=== PATIENT | female | born 1945 | race Caucasian/White ===

== ENCOUNTER 2016-08-11 07:59 | Outpatient (CLI) | payer MEDICARE, BC ==
[~2016-08-11] VITALS: Ht 170.2 cm; Wt 97.3 kg
--- NOTE | ~2016-08-11 | HEMODYNAMI ---
PATIENT:SHANIA VALERIO MEDICAL RECORD: [id number] : 49 LOCATION:D.CAT ADMISSION DATE: 08/11/16 Generatedon:08/11/201611:40 Patient name: SHANIA VALERIO Patient #: [id number] SSN: [id number] : 1945 Date of study: 08/11/2016 Page: Of Hemodynamic Procedure Report Patient Data Patient Demographics Procedure consent was obtained First Name: SHANIA Gender: Female Last Name: TEODORO : 1945 Middle Initial: D Age: 71 year(s) Patient #: [id number] Race: SSN: [id number] Additional ID: [id number] Contact details [address]: [address] [place] [address] State: [place] City: [place] Zip code: [address] Past Medical History Allergies Allergen Reaction Date Comments Reported Other allergy 08/11/2016 Penicillin, amoxicillin, sulfa, codeine, adhesive, augmentin Admission Admission Data Admission Date: 08/11/2016 Admission Time: 7:59 Arrival Date: 08/11/2016 Arrival Time: 10:00 Admit Source: Other Insurance Payor: Medicare Height (in.): 67 BSA: 2.08 (m2) Height (cm.): 170.18 BMI: 33.52 (kg/m2) Weight (lbs.): 214 Weight (kg.): 97.07 Lab Results Lab Result Date: 08/11/2016 Lab Result Time: 0:00 Biochemistry Name Units Result Min Max BUN mg/dl 23 --(----)-* 7 18 Creatinine mg/dl 1.1 --(--*-)-- 0.6 1.3 CBC Name Units Result Min Max Hemoglobin g/dl 11.8 *-(----)-- 13.5 17.5 Procedure Procedure Types Cath Procedure Diagnostic Procedure Cardioversion Procedure Description Procedure Date Procedure Date: 08/11/2016 Procedure Start Time: 11:30 Procedure End Time: 11:31 Procedure Staff Name Function Yves Antonio MD Performing Physician Shruti Lacy RT Scrub Nicole Issa RN Nurse Thu Guardado RT Monitor Indication Angina Procedure Data Cath Procedure Fluoroscopy Diagnostic fluoroscopy Total fluoroscopy Time: 0 time: 0 min min Diagnostic fluoroscopy Total fluoroscopy dose: 0 dose: 0 mGy mGy Contrast Material Contrast Material Type Amount (ml) Isovue 370 0 Estimated blood loss: 0 ml Procedure Complications No complications Procedure Medications Medication Administration Route Dosage Oxygen NC 2 l/min Refer to Anesthesia Notes for Sedation Medications Hemodynamics Rest BSA: 2.08 (m2) HGB: 11.8 (g/dl) O2 Consumption: Estimated: 207.22 (ml/min) O2 Consumption indexed: Estimated:99.63 (ml/min/m) Heart Rate: 89 (bpm) Snapshots Pre Cath Intra NCS Post Cath Vital Signs Time Heart Resp SPO2 NIBP (mmHg) Rhythm Pain Sedation Rate (ipm) (%) Status Level (bpm) 11:24:03 93 15 98 131/86(112) A-Fib 0 (11) 10(A) , No pain 11:28:16 87 15 98 138/79(100) A-Fib 0 (11) 6(A) , No pain 11:32:31 52 16 96 88/45(66) SB 0 (11) 6(A) , No pain 11:36:25 51 15 97 85/44(65) SB 0 (11) 8(A) , No pain Medications Time Medication Route Dose Verified Delivered Reason Notes Effectiven ess by by 11:26:36 Oxygen NC 2 Yves Rivera Per l/min Marisela Issa RN physician 11:26:44 Refer to Yves Marinelli for Anesthesia Marisela Antonio MD sedation Notes for Sedation Medications Procedure Log Time Note 11:00:35 Nicole Issa RN sent for patient. Start room use. 11:16:12 Informed consent obtained and on chart 11:17:12 Admit Source: Other 11::18 Arrival Date: 08/11/2016 10:00:00 AM 11:17:25 Insurance Payor : Medicare 11:19:52 Lab Result : BUN 23 mg/dl 11:19:52 Lab Result : Creatinine 1.1 mg/dl 11:19:52 Lab Result : Hemoglobin 11.8 g/dl 11:19:57 Diagnostic Cath Status : Elective 11:20:18 Indication : Angina 11:20:41 Time tracking: Regular hours 11::13 Plan of Care:Hemodynamics will remain stable., Cardiac rhythm will remain stable., Comfort level will be maintained., Respiratory function will remain adequate., Patient/ family verbilizes understanding of procedure., Procedure tolerated without complication., Recovers from procedure without complications.. 11:21:42 Patient received from Outpatients to CCL 1 Alert and oriented. Tansferred to table in Supine position. 11:21:43 Warm blankets applied, and suzy hugger turned on for patient comfort. 11:21:43 Correct patient and procedure confirmed by team. 11:21:44 ECG and BP/O2 sat monitors applied to patient. 11:23:06 Vital chart was started 11:23:07 Baseline sample Acquired. 11:23:13 Rhythm: atrial fibrillation 11:23:15 Full Disclosure recording started 11:23:42 H&P Date Dictated: 08/05/2016 Within 30 days and on chart., H&P Addendum completed by physician on day of procedure. (MUST COMPLETE FOR ALL OUTPATIENTS). 11:23:47 Pre-procedure instructions explained to patient. 11:23:47 Pre-op teaching completed and patient verbalized understanding. 11:23:49 Family in waiting room. 11:23:50 Patient NPO since Midnight. 11:24:36 Patient allergic to Other allergyPenicillin, amoxicillin, sulfa, codeine, adhesive, augmentin 11:25:17 Is the patient allergic to Iodine/contrast media? No. 11:25:20 Was the patient premedicated? No 11:25:44 Is patient on blood thinner?Yes 11:25:48 ACC The patient was administered the following blood thiners within the last 24 hours: Coumadin 11:25:50 Patient diabetic? No. 11:25:53 Previous problem with sedation/anesthesia? No ? 11:25:55 Snore? No 11:25:56 Sleep apnea? No 11:25:58 Deviated septum? No 11:25:59 Opens mouth fully? Yes 11:26:00 Sticks out tongue? Yes 11:26:02 Airway obstruction? No ? 11:26:07 Dentures? Yes in tight 11:26:10 Pre procedure: right dorsailis pedis pulse 1+ Palpable, but thready & weak; easily obliterated 11::13 Patient pain scale 0/10 ?. 11:26:20 IV patent on arrival in left forearm with 0.9% NaCl at O. :: Lab results completed and on chart. 11:: Mid Chest area was prepped with chlora-prep and draped in sterile fashion 11:: Alarms reviewed by R. N. 11:: Sharps counted by scrub and verified by R.N. 11::36 Oxygen 2 l/min NC was given by Nicole Issa RN; Per physician; 11::42 Hernandez Esquivel present and monitoring patient for TIVA. 11::44 Refer to Anesthesia Notes for Sedation Medications was given by Yves Antonio MD; for sedation; 11::46 Quick combo pads placed on patients chest and back. 11:28:12 Physician arrived 11:: --------ALL STOP TIME OUT------ 11::13 Final Timeout: patient, procedure, and site verified with staff and physician. All members of the team are in agreement. 11::16 Mid Chest site verified by team. 11::21 Physical assessment completed. ASA score P 2 - A patient with mild systemic disease as per Yves Antonio MD. 11::24 Sedation plan: TIVA Propofol 11::30 Procedure started. 11::52 Defib charged to 250 joules 11::02 Quick Combo opened to sterile field. 11:29:45 Shock delivered. 11::53 Patient cardioverted to sinus rhythm . 11::37 Procedure ended.(Physican Out) 11::04 Fluoroscopy time 00.00 minutes. 11::06 Fluoroscopy dose: 0 mGy 11:: Flurop Dose total: 0 11::09 Contrast amount:Isovue 370 0ml. 11:31:10 Sharps counted by scrub and verified by R.N. 11::17 Post procedure rhythm: sinus rhythm ::20 Estimated blood loss: 0 ml :: Post procedure instruction explained to patient.Patient verbalizes understanding. : Patient needs reinforcement of post procedure teaching. : Procedure and supply charges have been captured, reviewed, submitted and are correct. 11:31:30 Procedure Complication : No complications 11:31:33 Vital chart was stopped 11:31:34 See physician's report for complete and final results. 11:31:46 Report given to Post Procedure Room. 11:31:48 Patient transfered to Post Procedure Room with Stretcher. 11:31:49 Procedure ended. 11:31:49 Full Disclosure recording stopped 11:31:53 End room use (Document Last) 11:32:39 Patient Weight : 97.07 kg 11:32:44 Patient Height : 170.18 cm Device Usage Item Manufacture Quantity Catalog Hospital Part Current Minimal Lot# / Name Number Charge Number Stock Stock Renae al# Code Iptivia 1 [id number] Combo Signature Audit [place] Stage Time Signature Unsigned Intra-Procedure 08/11/2016 Thu Guardado 11:40:45 AM RT(R) Signatures Monitor : Thu Guardado RT Signature : Date : Time : [facility] [address] [facility] [place] [address]
[~2016-08-11 07:59] MED LIST: ACETAMINOPHEN500 M1 PO; ASPIRIN 81 MG E81 MG PO; BAYER CHEWABLE81 MG PO; BENADRYL25 MG PO; CARAFATE1 G/10 ML PO; CIPROFLOXACIN750 MG PO; COLACE100 MG PO; COUMADIN2.5 MG PO; COUMADIN4 MG PO; COUMADIN5 MG PO; COZAAR50 MG PO; CRANBERRY475 MG PO; DETROL LA4 MG PO; ELIQUIS2.5 MG PO; FORMULA E400 UNIT PO; FORTAZ IV; GARLIC1 CAP PO; HYDROCHLOROTH12.5 M1 PO; HYZAAR 100-12.51 TAB; HYZAAR 100-12.51 TAB PO; HYZAAR 50-12.51 TAB PO; KLOR-CON 1010 MEQ PO; LEVAQUIN500 MG PO; LOVENOX40 MG/0.4 SC; MEDROL DOSE PACK4 MG PO; METOPROLOL TAR100 M1 PO; MIRALAX17 GM PO; MOTRIN800 MG PO; MULTI-DAY VITAM1 TAB PO; MULTIPLE VITAMI1 TA1 PO; NIASPAN500 MG PO; OXYCONTIN10 MG PO; PERCOCET 10/3251 TA1 PO; PLAVIX75 MG PO; PRAVACHOL20 MG PO; PROTONIX40 MG PO; SALINE FLUSH10 ML IV; SYNTHROID125 MCG PO; SYNTHROID150 MCG PO; TOPROL XL100 MG PO; ULTRAM50 MG PO; UROCIT-K10 MEQ PO; VESICARE5 MG PO; VITAMIN B-1000 MCG/M IM; VITAMIN B-1000 MCG/M SQ; VITAMIN D2000 UNIT PO; VITAMIN E400 UNI2 PO; ZYRTEC10 MG PO; [UNRECOGNIZED DRUG - OTHER] IV
[2016-08-11] MEDS ORDERED: COUMADIN6 MG PO (08:39)
[2016-08-11] MEDS ORDERED: OMEPRAZOLE20 M1 PO (08:47)
[2016-08-11] MEDS ORDERED: DOXYCYCLINE HY100 M2 PO (08:50)
[2016-08-11] MEDS ORDERED: BETAPACE 120 M120 MG PO (08:51)
[2016-08-11] MEDS ORDERED: DETROL2 MG PO (08:51)
[2016-08-11] MEDS ORDERED: PROVENTIL/2.5 MG/3 M INH (08:51)
[2016-08-11] MEDS ORDERED: ZOFRAN4 MG (08:52)
[2016-08-11] MEDS ORDERED: CLARITIN 10 MG10 MG PO (08:52)
[2016-08-11] MEDS ORDERED: MUCINEX600 MG PO (08:53)
[2016-08-11] MEDS ORDERED: BENADRYL25 MG PO (08:53)
[2016-08-11] MEDS ORDERED: MYLANTA II SUSP30 ML PO (08:54)
[2016-08-11] MEDS ORDERED: FLORANEX / LACT1 TAB PO (08:54)
[2016-08-11 08:58] VITALS: BP 148/74; Ht 170.2 cm; Wt 97.3 kg
[2016-08-11 09:08] LABS: BASOPHILS 0 % (0.0-2.0); EOSINOPHILS 0 % (0-7); HEMATOCRIT 38.5 % (36.0-48.0); HEMOGLOBIN 11.8 g/dL (12-16); IMMATURE GRANULOCYTES 0.2 % (0-5); LYMPHOCYTES 17.9 % (15-50); MCH 26.5 pg (26.0-34.0); MCHC 30.6 g/dL (31.0-37.0); MCV 86.5 fL (80.0-100.0); MEAN PLATELET VOLUME 10.1 fL (7.4-10.4); MONOCYTES 8.1 % (2-11); NEUTROPHILS 73.8 % (40-80); RBC 4.45 10x6/uL (4.00-5.40); RDW 15.9 % (11.5-14.5); WBC 5.8 10x3/uL (4.8-10.8)
[2016-08-11 09:11] LABS: PLATELET COUNT 115 10x3/uL (130-400)
[2016-08-11 09:20] LABS: ANION GAP 10.4 mmol/L (8-16); CALCIUM 9.3 mg/dL (8.5-10.1); CARBON DIOXIDE 30.9 mmol/L (21.0-32.0); CREATININE - SERUM 1.1 mg/dL (0.6-1.3); POTASSIUM - SERUM 4.3 mmol/L (3.5-5.1)
[2016-08-11 09:28] LABS: INR 3.16 (0.85-1.17); PROTIME 32.7 SECONDS (11.6-15.0)
--- NOTE | 2016-08-11 11:57 | NUR ---
CHEST PAIN DENIED WITH HR SB 51. BP 90/53 SITTING WITH HOB UP 30 DEGREES TALKING TO FAMILY WILL SIN
--- NOTE | 2016-08-11 12:37 | NUR ---
REPOSITIONED TO SITTING WITH HOB UP 45 DEGREES FOR DISCHARGE FAMILY AT SIDE
--- NOTE | 2016-08-11 12:45 | NUR ---
PICC LINE FLUSHED WITH 10 CC NS AND CAP APPLIED. DISCHARGE INSTRUCTIONS GONE OVER WITH PATIENT AND SPOUSE. LEFT VIA WC TO [facility] EM[facility]GENC[facility]PARTMENT FOR [facility] TRANSPORT BUS
--- NOTE | 2016-08-13 16:40 | OP ---
PATIENT NAME: SHANIA VALERIO MEDICAL RECORD: [id number] :49 LOCATION:D.ZANE ADMISSION DATE: SURGEON: ESTIVEN MCKENZIE MD DATE OF OPERATION: 08/11/2016 PROCEDURE: DC cardioversion. INDICATION: Atrial fibrillation. PROCEDURE IN DETAIL: IV conscious sedation was performed per anesthesia. Continuous O2 saturation, heart rate, blood pressure monitoring all undertaken, all of which remains stable. She received 1 shock at 250 joules restoring sinus rhythm. OVERALL IMPRESSION: Successful DC cardioversion from atrial fibrillation to sinus rhythm. TRANSINT:[id number] Voice Confirmation ID: [id number] DOCUMENT ID: [id number] ESTIVEN MCKENZIE MD at 1640 CC: [id number] DICTATION DATE: 08/11/16 1131 [facility] SLAKER: 08/11/16 1144 [facility] CLI 08/11/[address] [address]
== END 2016-08-11 12:52 | disposition home or self-care (01) ==
LOC: D.CATH 07:59
PROVIDERS: Internal Medicine Interventional Cardiology
DX: I48.91 Unspecified atrial fibrillation (principal)

== ENCOUNTER 2018-12-26 12:54 | Inpatient (IN) | payer MEDICARE, BC ==
[~2018-12-26] VITALS: Ht 167.6 cm; Wt 90.9 kg
[~2018-12-26 12:54] MED LIST changes: +BETAPACE 120 M120 MG PO; +BETAPACE 80 MG80 MG PO; +CLARITIN 10 MG10 MG PO; +COUMADIN6 MG PO; +DETROL2 MG PO; +DOXYCYCLINE HY100 M2 PO; +FLORANEX / LACT1 TAB PO; +FUROSEMIDE20 MG PO; +K-TAB10 MEQ PO; +LEVOTHYROXINE125 MCG PO; +MUCINEX600 MG PO; +MYLANTA II SUSP30 ML PO; +OMEPRAZOLE20 M1 PO; +PRAVASTATIN SOD10 MG PO; +PROVENTIL/2.5 MG/3 M INH; +ZOFRAN4 MG
[2018-12-26] MEDS ORDERED: MACRODANTIN100 MG PO (13:40)
[2018-12-26] MEDS ORDERED: FUROSEMIDE20 MG PO (13:41)
[2018-12-26] MEDS ORDERED: BAYER CHEWABLE81 MG PO (13:43)
[2018-12-26] MEDS ORDERED: SORINE80 MG PO (13:43)
[2018-12-26] MEDS ORDERED: COZAAR50 MG PO (13:47)
[2018-12-26] MEDS ORDERED: MERIBIN5 MG PO (13:48)
[2018-12-26] MEDS ORDERED: EDECRIN25 MG PO (13:49)
[2018-12-26 15:27] LABS: APPEARANCE CLEAR (CLEAR); BILIRUBIN NEGATIVE (NEGATIVE); COLOR YELLOW (YELLOW); EPITHELIAL CELLS OCC /hpf (0-5); GLUCOSE NEGATIVE (NEGATIVE); KETONE NEGATIVE (NEGATIVE); NITRITE NEGATIVE (NEGATIVE); PROTEIN NEGATIVE (NEGATIVE); RED CELLS - URINE OCC /hpf (0-5); UROBILINOGEN NORMAL (NORMAL); WHITE CELLS - URINE OCC /hpf (0-5)
[2018-12-26 15:28] LABS: BACTERIA FEW /hpf (NONE SEEN)
[2018-12-26 16:14] LABS: BASOPHILS 0 % (0-2); EOSINOPHILS 0.2 % (0-7); HEMATOCRIT 39.5 % (36.0-48.0); HEMOGLOBIN 12.7 g/dL (12-16); IMMATURE GRANULOCYTES 0.2 % (0-5); LYMPHOCYTES 30.8 % (15-50); MCH 27.7 pg (26.0-34.0); MCHC 32.2 g/dL (31.0-37.0); MCV 86.1 fL (80.0-100.0); MEAN PLATELET VOLUME 9.7 fL (7.4-10.4); MONOCYTES 11.4 % (2-11); NEUTROPHILS 57.4 % (40-80); RBC 4.59 10x6/uL (4.00-5.40); RDW 14.8 % (11.5-14.5); WBC 4.9 10x3/uL (4.8-10.8)
[2018-12-26 16:18] LABS: APTT 28.5 SECONDS (22.8-39.4); INR 1.05 (0.85-1.17); PROTIME 13.2 SECONDS (11.6-15.0)
[2018-12-26 16:23] LABS: PLATELET COUNT 143 10x3/uL (130-400)
[2018-12-26 16:33] LABS: ALBUMIN 3.6 g/dL (3.4-5.0); ANION GAP 13.6 mmol/L (8-16); BILIRUBIN - TOTAL 0.55 mg/dL (0.2-1.3); CALCIUM 9.3 mg/dL (8.5-10.1); CARBON DIOXIDE 28.8 mmol/L (21.0-32.0); PHOSPHOROUS 4.2 mg/dL (2.5-4.9); POTASSIUM - SERUM 4.4 mmol/L (3.5-5.1); PROTEIN - SERUM 7.1 g/dL (6.4-8.2); T4 THYROXIN - FREE 1.49 ng/dL (0.76-1.46); THYROID STIMULATING HORMONE 1.03 uIU/mL (0.36-3.74); URIC ACID 7.5 mg/dL (2.6-7.2)
[2018-12-29] VITALS (43 sets, daily range): BP systolic 99–188; BP diastolic 42–667; BMI 29.7; BMI 30.7
[2018-12-29] MEDS ORDERED: PREVACID15 MG PO (06:06)
[2018-12-29 16:52] LABS: BASOPHILS 0 % (0-2); EOSINOPHILS 0.3 % (0-7); HEMATOCRIT 29.3 % (36.0-48.0); HEMOGLOBIN 9.3 g/dL (12-16); IMMATURE GRANULOCYTES 0.4 % (0-5); LYMPHOCYTES 3.8 % (15-50); MCH 27.3 pg (26.0-34.0); MCHC 31.7 g/dL (31.0-37.0); MCV 85.9 fL (80.0-100.0); MEAN PLATELET VOLUME 9.9 fL (7.4-10.4); MONOCYTES 6.7 % (2-11); NEUTROPHILS 88.8 % (40-80); RBC 3.41 10x6/uL (4.00-5.40); RDW 14.8 % (11.5-14.5); WBC 7.5 10x3/uL (4.8-10.8)
[2018-12-29 16:59] LABS: INR 1.34 (0.85-1.17)
[2018-12-29 17:04] LABS: PLATELET COUNT 86 10x3/uL (130-400)
[2018-12-29 17:28] LABS: PLATELET ESTIMATE DECREASED
--- NOTE | 2018-12-29 18:24 | NUR ---
1500-RECIEVED VIA BED OR TEAM-PLACED TO MONITORS AND VENT-SEE RT RECORDFOR VENT SETTINGS AND CHANGES-NOTED PACED 100%-80/10/20-DDD GIL 1 MEDIASTINAL CHEST AND R CHEST TUBE PLACED TO 20CM-NO OGT TUBE-DR BELLO AT BEDSIDE AND MONITORING ABP WITH TITRATION -R IJ IN [id number]-FWMPEXZH-RLET PA WAVEFORM-GROCERY STORE ASSOCIATE AND SVO2 PLACED TO MONITOR-FSBS DONE ON ARRIVAL-WITHIN PARAMETER-NO INSULIN GTT INITIATED-R RADIAL KIRSTEN TO MONITOR 1515-DR PERES BROUGHT TO BEDSIDE FOR LABILE ABP-FOLLOWING CHANGES MADE BY SAME -NTG GTT MAX 10ML/H-CLEVIPREX TO TITRATE OFF WITH VERBAL PARAMETER OF 110-140 SYS-STRICT TO REMAIN WITHIN PARAMETER-OFF EPINEPHRINE GTT-PACER CHANGED TO AAI 80//0-NOTED [facility] PACED 100% 1520-PORT CHEST XRAY COMPLETED 1530-DR PERES RETURNED TO RM AND ADJUSTED SG WITH GOOD PA WAVEFORM-AND LOCKED 1600-PACER CHANGE TO STANDBY BY DR PERES-NOTED SR 79 ON MONITOR -CLEVIPREX OFF 1618-FAMILY AT BEDSIDE-STATUS REPORT GIVEN-QUESTIONS ADDRESSED 1700-LAB DRAWN ORDERED BY DR PERES 1730-DR PERES AT [facility] -VENT CHANGES CONTINUED 1745-PT OPENED EYES TO NAME AND GRIPPED THAIS HANDS -R WEAK-KIRSTEN IN PLACE
--- NOTE | 2018-12-29 19:20 | NUR ---
REPORT REC'D AND CARE ASSUMED, REC'D PT ON VENT VIA 8.0 ETT TAPED SECURELY AT 22CM LIPLINE SEE FLOWSHEET FOR VENT SETTINGS, PT AWAKENS TO VERBAL STIMULI, FOLLOWING COMMANDS, BILAT INDUSTRIAL ENGINEERING EQUAL AND STRONG, PT NODDING IN UNDERSTANDING, CM-SR @ 80, MIDSTERNAL DRSG CDI, SUBSTERNAL DRSG WITH EXTERNAL P/M WIRES SECURED, RIJ SWAN SLAVA TRANSDUCED TO VIGILANCE MONITOR, MANNIFOLD TO PROXIMAL INFUSION WITH PLASMALYTE @ 100CC/HR, DOBUTAMINE @ 5MCG/KG/MIN OR 12.5CC/HR, AND ZINACEF @ 11.4CC/HR, RIGHT RADIAL KIRSTEN WITH FLEXION BOARD IN USE, ABD SOFT BS ABSENT, MEDIASTINAL CT WITH Y CONNECTOR SANGUINOUS DRAINAGE NOTED, RIGHT CT NOTED, BOTH CT'S TO 20 CM H20 SUCTION, NO AIR LEAK, CRITICORE ALEX PATENT DRAINING CLEAR YELLOW URINE, LEFT LEG WITH COBAN DRSG CDI, SCD AND CARRIE TO RIGHT LEG, PPP, BILAT SOFT WRIST RESTRAINTS INTACT, 1:1 NURSING IN USE. ,
--- NOTE | 2018-12-29 20:15 | NUR ---
PT PLACED ON CPAP AT THIS TIME, PT RESTING EYES CLOSED, RESP 21, BP STABLE, WILL MONITOR CLOSELY FOR CHANGES.
--- NOTE | 2018-12-29 21:36 | NUR ---
PT EXTUBATED TO 5L NC, BILAT SOFT WRIST RESTRAINTS REMOVED AFTER PT BEING INSTRUCTED NOT TO PULL AT LINES OR TUBES, PT NODS HEAD IN AGREEMENT, REPOSITIONED UP IN BED FOR COMFORT, PT COMPLAINS OF DIFFICULTY SEEING, WASHED FACE AND EYES LACRILUBE NOTED TO EYES.
--- NOTE | 2018-12-29 22:15 | NUR ---
PT COMPLAINS OF MOUTH BEING DRY, ICE CHIPS STARTED, PT DENIES NAUSEA, BP STABLE.
--- NOTE | 2018-12-29 23:16 | NUR ---
REASSESSMENT COMPLETED, PT TOLERATING ICE CHIPS WELL, INCREASED TO SIPS OF WATER, PT CONTINUES TO DENY NAUSEA, DENIES NEED FOR PAIN PILL, RATING PAIN "3" ON 0-10 PAIN SCALE, WILL CONTINUE TO MONITOR FOR CHANGES.
--- NOTE | 2018-12-29 23:30 | NUR ---
RT AT BS FOR BREATHING TX
[2018-12-30] VITALS (78 sets, daily range): BP systolic 78–139; BP diastolic 31–71; BMI 32.3
--- NOTE | 2018-12-30 | NUR ---
SPLINTING TECHNIQUES DEMONSTRATED FOR PT WITH HEART PILLOW, PT REQUESTING "MORE ICE WATER", CONINTUES TO DENY NEEDS.
--- NOTE | 2018-12-30 01:05 | NUR ---
PT COMPLAINS OF INCISIONAL DISCOMFORT, SBP TRENDING UP, 1 PERCOCET GIVEN PO FOR PAIN, PT RATING PAIN "5" O-10 PAIN SCALE, WILL MONITOR CLOSELY FOR CHANGES.
--- NOTE | 2018-12-30 02:40 | NUR ---
PT RESTING EYES CLOSED RESP EVEN AND UNLABORED, VSS, WILL MONITOR CLOSELY ROR CHANGES
--- NOTE | 2018-12-30 03:15 | NUR ---
RT AT BS FOR BREATHING TX, PT PULLING 500 ON IS, PRODUCTIVE COUGH NOTED WITH WHITE SPUTUM CLEARED VIA YANKEUR, PT REPOSITIONED UP IN BED AND ONTO LEFT SIDE SUPPORTED WITH PILLOWS, VSS, SR UP X 2, VISIBLE TO NURSES STATION.
--- NOTE | 2018-12-30 04:00 | NUR ---
COMPLETE HIBICLENS BATH AND LINEN CHANGE PROVODED, PT REPOSITIONED UP IN BED FOR COMFORT, ICE WATER PROVIDED ON REQUEST, PT DENIES FURTHER NEEDS.
--- NOTE | 2018-12-30 04:15 | NUR ---
AT BS, UPDATE GIVEN AND QUESTIONS ANSWERED.
--- NOTE | 2018-12-30 04:25 | NUR ---
PT COMPLAINS OF INCISIONAL DISCOMFORT, 1 PERCOCET GIVEN WITH SIPS OF [place] LAY [place]A, REMAINS AT BS
--- NOTE | 2018-12-30 06:00 | NUR ---
AM LAB DRAWN FROM CVL AND SENT TO LAB
--- NOTE | 2018-12-30 06:10 | NUR ---
CM-HR DECREASED TO 65 APPEARS JUNCTIONAL BP 100/40, PT RESTING EYES CLOSED, EASILY AWAKENS, DENIES NEEDS.
[2018-12-30 06:14] LABS: HEMATOCRIT 25.2 % (36.0-48.0); MCH 27.1 pg (26.0-34.0); MCHC 31.7 g/dL (31.0-37.0); MCV 85.4 fL (80.0-100.0); MEAN PLATELET VOLUME 9.8 fL (7.4-10.4); RBC 2.95 10x6/uL (4.00-5.40); RDW 15.3 % (11.5-14.5); WBC 8.7 10x3/uL (4.8-10.8)
[2018-12-30 06:35] LABS: ALBUMIN 2.8 g/dL (3.4-5.0); ANION GAP 13.5 mmol/L (8-16); BILIRUBIN - TOTAL 0.53 mg/dL (0.2-1.3); CALCIUM 8.1 mg/dL (8.5-10.1); CARBON DIOXIDE 26.5 mmol/L (21.0-32.0); CREATININE - SERUM 1.1 mg/dL (0.6-1.3); PROTEIN - SERUM 5.2 g/dL (6.4-8.2)
--- NOTE | 2018-12-30 06:45 | NUR ---
RT NOTIFIED OF NEED FOR ABG, CM-JUNCTIONAL RHYTHM 59-62, SBP 80'S
--- NOTE | 2018-12-30 06:55 | NUR ---
CARE PLAN REVIEWED -ADJUSTED
--- NOTE | 2018-12-30 07:10 | NUR ---
DR. HALEY NOTIFIED OF RHYTHM CHANGE AND PLACING PACEMAKER AT DDD [address] PERES YESTERDAY, RATE INCREASED TO 90 , P/M CAPTURING BP INCREASED TO HIGH 90'S , NO FURTHER ORDERS AT THIS TIME.
--- NOTE | 2018-12-30 07:30 | NUR ---
RT NOTIFIED OF NEED FOR GAS, CM-JUNCTIONAL RHYTHM @ 59-62, SBP 80'S
--- NOTE | 2018-12-30 10:00 | NUR ---
0715-RECIEVED PER FLOW SHEET-DR HALEY BEING NOTIFIED OF CURRENT STATUS BY Sergio BARR RN-PACEMAKER ADJUSTED TO 90 05/08-DDD WITH 100% A/V CAPTURE-RESP RX IN PROGRESS-POST PRODUCTIVE COUGH BY PT-MARKED PALLOR NOTED--PP BOUNDING 0830- ADJUSTED HOB TO INCREASED ANGLE-45 DEGREES-NOTED CONCURRENT DECREASE IN NIBP AND ABP-79/44(53)/88/41(51)-RETURNED HOB TO 30DEGREES-PT COMPLAINT OF NOT BEING ABLE TO EAT THIS WAY-AND COMPLAINT OF ARM RESTRICTION WITH "ALL THIS STUFF"-EXPLAINED BP DROP WITH SITTING UP AND HURT STILL "SHOCKY" PHASE REMINDED 18H ONLY POST COMPLETION OF SURGERY AND IN RECOVERY PHASE AT THIS TIME-FAMILY MEMBER NODDED IN AGREEMENT-PT CONCEDED-FAMILY MEMBER ASSISTED WITH CLEAR LIQUID DIET 0830-UPDATED DR HALEY WITH CURRENT STATUS AND ABP SLOWLY TRENDING TO UPPER 90 SYSTOLIC-HOURL OUT PUT WELL-NO FURTHER ORDERS AT THIS TIME
--- NOTE | 2018-12-30 10:21 | NUR ---
LEFT ROOM PT APPEARS TO BE ASLEEP 1030-AWAKE ALERT-DENIES ANY PAIN AT THIS TIME
[2018-12-30 12:11] LABS: HEMATOCRIT 24.3 % (36.0-48.0); HEMOGLOBIN 7.7 g/dL (12-16); MCHC 31.7 g/dL (31.0-37.0); MCV 85.3 fL (80.0-100.0); MEAN PLATELET VOLUME 10.2 fL (7.4-10.4); RBC 2.85 10x6/uL (4.00-5.40); RDW 15.3 % (11.5-14.5); WBC 9.9 10x3/uL (4.8-10.8)
--- NOTE | 2018-12-30 12:49 | NUR ---
1130-DR HALEY AT BEDSIDE-STATUS REPORT AND ORDERS RECIEVED 1200-HEMOGRAM DRAWN ORDERED 1255-HCT 24.6-PRBC UNIT [id number] VIA R IJ
--- NOTE | 2018-12-30 13:42 | NUR ---
FAMILY AT BEDSDIE -HELPING PT POSITION SELF
--- NOTE | 2018-12-30 13:54 | NUR ---
PLACED PT AT REQUEST 30 DEGREES-ABP 115/53
--- NOTE | 2018-12-30 15:17 | NUR ---
1448-update called to dr watkins-pa and cvp pressure-order recieved and noted 1515-[facility] [id number]
--- NOTE | 2018-12-30 16:30 | NUR ---
dr watkins notified of rhythm change and pacer sensing vent-pacer change to 80/10/15-noted 100% av paced with no further sensing ventricular simultaneously with pacing ventricle-prbc infusing-pa
--- NOTE | 2018-12-30 18:38 | NUR ---
1809-PRBC COMPLETED-DR HALEY NOTIFIED OF CURRENT HEMODYNAMICS-U/O -ORDER RECIEVED--PLASMALYTE DECREASED TO 50ML/H-LASIX 40MG IV GIVEN
--- NOTE | 2018-12-30 19:20 | NUR ---
REPORT REC'D AND CARE ASSUMED, PT ASSISTED WITH DAYSHIFT TO DANGLE AT BS FOR APPROXIMATELY 10MINUTES, PARTIAL HIBICLENS BATH GIVEN AND LINES STRAIGHTENED, PT REQUESTING PAIN PILL, RATING PAIN "6" ON 0-10 PAIN SCALE, PERCOCET PROVIDED, MIDSTERNAL DRSG CDI, RIJ JUHI PEDERSEN DRSG CDI WITH MANNIFOLD TO PROXIMAL INFUSION WITH PLASMALYTE @ 50CC/HR AND DOBUTAMINE @ 5MCG/KG/MIN OR 12.5CC/HR, RIGHT RADIAL KIRSTEN WITH FLEXION BOARD IN USE, SUBSTERNAL DRSG CDI WITH EXTERNAL P/M WIRES TAPED SECURELY UNDER DRSG, EXTERNAL P/M DDD RATE 80 AMA 10 VMA 20, CM-AV PACED @ 80, MEDIASTINAL CT WITH Y AND RIGHT CT BOTH TO 20CM H2O SUCTION, NO AIR LEAK NOTED, LEFT A/C PIV WITH ZINACEF INFUSING @ 11.4CC/HR, ABD ROUND AND SOFT BS X 4 NOTED, CRITICORE ALEX PATENT DRAINAING CLEAR YELLOW URINE, LEFT LEG COBAN REMOVED, INCISIONS X 2 ON UPPER THIGH, OPEN TO AIR, PT REPOSITIONED UP IN BED FOR COMFORT, BILAT SCDS AND TEDS PPP, SR UP X 2, VISIBLE TO NURSES STATION. YELLOW,
--- NOTE | 2018-12-30 20:30 | NUR ---
FSBS 116, RT AT BS GIVING BREATHING TX, PT PULLING 500 ON IS , PRODUCTIVE COUGH NOTED AND PT CLEARING SECRETIONS WITH YANKEUR, PT DENIES NEEDS.
--- NOTE | 2018-12-30 21:00 | NUR ---
EVENING MEDS GIVEN ORDERED, PT ASSISTED TO REPOSITION FOR COMFORT, PT DENIES NEEDS, RATING PAIN "O" AFTER PAIN PILL, WILL MONITOR CLOSELY FOR CHANGES.
--- NOTE | 2018-12-30 23:00 | NUR ---
REASSESSMENT COMPLETED, PT REPOSITIONED FOR COMFORT, PT PULLING 500 ON IS WITH ENCOURAGEMENT,PT USING HEART PILLOW TO SPLINT INCISION, PT REFUSED A PAIN PILL AT THIS TIME, VSS, WILL CONT TO MONITOR FOR CHANGES.
[2018-12-31] VITALS (43 sets, daily range): BP systolic 82–139; BP diastolic 45–88; Ht 167.6 cm; Wt 90.9 kg
--- NOTE | 2018-12-31 01:10 | NUR ---
PT AWAKE, COMPLAINS OF RIGHT SHOULDER PAIN, RATING PAIN "4" ON 0-10 PAIN SCALE, PT ASSISTED TO REPOSITION FOR COMFORT, PERCOCET 5/325 GIVEN FOR PAIN, PT DENIES FURTHER NEEDS.
--- NOTE | 2018-12-31 03:15 | NUR ---
REASSESSMENT COMPLETED, NO CHANGES FROM PREVIOUS ASSESSMENT, PT RESTING IN BED EYES CLOSED, RESP EVEN AND UNLABORED, BP STABLE, CM - AV PACED @ 80, WILL CONT TO MONITOR CLOSELY FOR CHANGES.
--- NOTE | 2018-12-31 04:00 | NUR ---
PT ASSISTED TO SIT ON SIDE OF BED AND DANGLE, SANGUINOUS DRAINAGE NOTED FROM RIGHT CT, COMPLETE HIBICLENS BATH AND LINEN CHANGE PROVIDED, PT BACK TO BED AFTER 15MINUTES ON SIDE OF BED, PT REPOSITIONED UP IN BED FOR COMFORT, SR UP X 2, CALL LIGHT IN REACH.
--- NOTE | 2018-12-31 04:15 | NUR ---
TO BS, UPDATE GIVEN AND QUESTIONS ANSWERED, PT DENIES NEEDS.
--- NOTE | 2018-12-31 04:50 | NUR ---
RADIOLOGY AT FOR AM CXR, PT REPOSITIONED FOR COMFORT, LEGS ELEVATED ON PILLOWS PER REQUEST, TEDS AND SCDS REAPPLIED AFTER BATH AND BREAK.
--- NOTE | 2018-12-31 06:10 | NUR ---
AM LAB DRAWN FROM KIRSTEN AND SENT TO LAB, PT REQUESTING SOMETHING TO DRINK, CRANBERRY JUICE PROVIDED, LIGHTS TURNED DOWN PER PT REQUEST, PT DENIES FURTHER NEEDS, SR UP X 2, YANMIGDALIA AND CALL LIGHT WITHIN REACH.
[2018-12-31 06:50] LABS: MCH 27.3 pg (26.0-34.0); MCHC 32.7 g/dL (31.0-37.0); MCV 83.5 fL (80.0-100.0); MEAN PLATELET VOLUME 11.3 fL (7.4-10.4)
[2018-12-31 06:58] LABS: HEMATOCRIT 29.4 % (36.0-48.0); HEMOGLOBIN 9.6 g/dL (12-16); RBC 3.52 10x6/uL (4.00-5.40)
--- NOTE | 2018-12-31 07:18 | NUR ---
CAREPLAN UPDATED WITH INCREASED FOCUS FOR PHYSICAL THERAPY
[2018-12-31 08:05] LABS: ALBUMIN 2.6 g/dL (3.4-5.0); ANION GAP 13.1 mmol/L (8-16); BILIRUBIN - TOTAL 0.76 mg/dL (0.2-1.3); CALCIUM 8.4 mg/dL (8.5-10.1); CREATININE - SERUM 0.9 mg/dL (0.6-1.3); POTASSIUM - SERUM 4.1 mmol/L (3.5-5.1); PROTEIN - SERUM 5.4 g/dL (6.4-8.2)
--- NOTE | 2018-12-31 09:55 | NUR ---
0715-RECIEVED AWAKE AND ALERT-HOB UP 45 DEGREES-JUHI PEDERSEN RELEVELED AND ZEROED-NOTED PA PRESSURE -DR HALEY NOTIFIED OF CURRENT STATUS AND HEMODYNAMICS 0740-ORDERED RECIEVED AND NOTED -BUMEX 2MG IVP- 829-REVIEWED ORAL FLUID RESTRICTION WITH PT -PROVIDED STYROFOAM CUP WITH ICE AND ENCOURAGED TO SIP ICE MELTED AND CUP WILL BE REPLACED WITH testhubC TRAY FOR NEW ONE-PT AGREEABLE AND ASKED IF IT WILL HELP WITH NOT BEING ABLE TO GET A GOOD BREATH-INFORMED SAME MOST LIKELY
--- NOTE | 2018-12-31 11:58 | NUR ---
REPOSITIONED IN BED-REQUESTING PAIN MEDICINE AT THIS TIME-OFFERED STRONGER DOSE-STATED DID NOT WANT THAT-STATED FROM MOVEMENT-ENCOURAGED TO CALL IF PAIN NOT DECREASED
--- NOTE | 2018-12-31 15:51 | NUR ---
1315-DR HALEY AT [facility]-CHEST TUBES X3 REMOVED BY SAME-TOLERATED WELL BY PT-R SWANGANZ REMOVED BY DR HALEY-CORDIS REMAINS IN PLACE-PACER WIRES REMAIN SECURED AND IN PLACE-PACED 100% 80//15-DDD 1400-PT ASSISTED TO CHAIR BY PHYSICAL THERAPY-NIBP 98/52 1430-NIBP 77/48-RETUNED TO BED WITH ASSIST OF 3 STAFF-TOLERATED WELL 1515-NIBP 102/50-NO CHANGES IN LOC
--- NOTE | 2018-12-31 18:18 | NUR ---
PT RESTING QUIETLY
--- NOTE | 2018-12-31 19:01 | NUR ---
REPORT RECEIVED, SHIFT ASSESSMENT COMPLETED PER FLOW SHEET. AAOX4. PPP. MIDSTERNAL DRESSING C/D/I. SUBSTERNAL DRESSING C/D/I, TPM WIRES CONNECTED TO PACEMAKER. PACEMAKER SETTING DDD RATE 80, AMA 10, VMA 20. PATIENT AV PACED AT 80, NOTIFIED BY DAY SHIFT RN THAT PHYSICIAN IS AWARE. RT IJ CVL PATENT, INFUSING PLASMALYTE AT 30 ML/HR AND DOBUTAMINE AT 5 MCG/KG/MIN OR 12.5 ML/HR. ALEX CATHETER TO GRAVITY SECURED, DRAINING CLEAR YELLOW UOP. COUGH/DEEP BREATHING AND USE OF IS ENCOURAGED, COUGH PRODUCTIVE, PULLING 500 X10 ON IS. SEE FLOW SHEET FOR COMPLETE ASSESSMENT. WILL CONTINUE TO MONITOR. CALL LIGHT WITHIN REACH.
--- NOTE | 2018-12-31 19:36 | NUR ---
CALL LIGHT ANSWERED, PATIENT C/O PAIN, PRN PERCOCET GIVEN, SEE EMAR FOR DETAILS. REPOSITIONED IN BED FOR COMFORT. DENIES OTHER NEEDS. CALL LIGHT WITHIN REACH. WILL CONTINUE TO MONITOR.
--- NOTE | 2018-12-31 19:55 | NUR ---
ORAL CARE PROVIDED WITH PERIDEX
--- NOTE | 2018-12-31 19:57 | NUR ---
SPOKE WITH DR. HALEY, EKG RHYTHM, VS, AND PACEMAKER SETTING REVIEWED. NO NEW ORDERS RECEIVED.
--- NOTE | 2018-12-31 20:56 | NUR ---
SCHEDULED MEDS GIVEN, TOLERATED WELL, NO DIFFICULTY SWALLOWING. DENIES NEEDS. CALL LIGHT WITHIN REACH.
--- NOTE | 2018-12-31 22:00 | NUR ---
RESTING, NO ACUTE DISTRESS NOTED. WILL CONTINUE TO MONITOR.
--- NOTE | 2018-12-31 23:01 | NUR ---
REASSESSMENT COMPLETED PER FLOW SHEET, SEE FOR DETAILS. NO ACUTE DISTRESS NOTED. DENIES PAIN. PPP. PULLING 500 X10 ON IS, COUGH PRODUCTIVE. DENIES NEEDS. CALL LIGHT WITHIN REACH. WILL CONTINUE TO MONITOR.
[2019-01-01] VITALS (25 sets, daily range): BP systolic 101–137; BP diastolic 40–83
--- NOTE | 2019-01-01 00:43 | NUR ---
CALL LIGHT ANSWERED, ASSISSTED PATIENT TO BEDPAN PER HER REQUEST. NO BM. ASSISSTED PATIENT OFF OF BEDPAN. REPOSITIONED IN BED. DENIES OTHER NEEDS. CALL LIGHT WITHIN REACH.
--- NOTE | 2019-01-01 01:11 | NUR ---
CALL LIGHT ANSWERED, C/O SHOULDER PAIN, REQUESTING SOMETHING FOR PAIN, PRN PERCOCET GIVEN. DENIES OTHER NEEDS. CALL LIGHT WITHIN REACH. WILL CONTINUE TO MONITOR.
--- NOTE | 2019-01-01 03:00 | NUR ---
REASSESSMENT COMPLETED PER FLOW SHEET, SEE FOR DETAILS. NO ACUTE CHANGES NOTED. DENIES NEEDS. PPP. CALL LIGHT WITHIN REACH. WILL CONTINUE TO MONITOR.
--- NOTE | 2019-01-01 04:00 | NUR ---
OCCASSIONAL PVC'S/PAC'S NOTED ON MONITOR. STAT POTASSIUM SENT TO LAB.
--- NOTE | 2019-01-01 04:18 | NUR ---
POTASSIUM LEVEL NOW AVAILABLE AND REVIEWED, K+ IS 3.5, TREATED PER PROTOCOL. WILL CONTINUE TO MONITOR. AT BEDSIDE FOR VISITING HOUR, UPDATE GIVEN, QUESTIONS ANSWERED.
--- NOTE | 2019-01-01 04:58 | NUR ---
CALL LIGHT ANSWERED, PATIENT C/O OF NAUSEA, PRN ZOFRAN GIVEN. EMESIS BAG PROVIDED, NO VOMITING AT THIS TIME. CALL LIGHT WITHIN REACH. AT BEDSIDE. WILL CONTINUE TO MONITOR.
--- NOTE | 2019-01-01 05:00 | NUR ---
COMPLETE BED BATH GIVEN, COMPLETE BED LINEN CHANGE PROVIDED. REPOSITIONED IN BED. CALL LIGHT WITHIN REACH. WILL CONTINUE TO MONITOR.
--- NOTE | 2019-01-01 06:00 | NUR ---
SUBSTERNAL DRESSING CHANGED PER DOCTOR'S ORDERS. TPM WIRES INTACT.
[2019-01-01 06:22] LABS: HEMATOCRIT 29.7 % (36.0-48.0); HEMOGLOBIN 9.6 g/dL (12-16); MCH 27.2 pg (26.0-34.0); MCHC 32.3 g/dL (31.0-37.0); MCV 84.1 fL (80.0-100.0); MEAN PLATELET VOLUME 10.3 fL (7.4-10.4); RBC 3.53 10x6/uL (4.00-5.40); RDW 15.6 % (11.5-14.5); WBC 10.1 10x3/uL (4.8-10.8)
--- NOTE | 2019-01-01 06:29 | NUR ---
ORAL CARE DONE WITH PERIDEX
[2019-01-01 06:41] LABS: ALBUMIN 2.4 g/dL (3.4-5.0); BILIRUBIN - TOTAL 0.58 mg/dL (0.2-1.3); CALCIUM 8.2 mg/dL (8.5-10.1); CARBON DIOXIDE 27.2 mmol/L (21.0-32.0); PROTEIN - SERUM 5.4 g/dL (6.4-8.2)
[2019-01-01 06:43] LABS: ANION GAP 10.1 mmol/L (8-16); POTASSIUM - SERUM 4.3 mmol/L (3.5-5.1)
[2019-01-01 06:58] LABS: PLATELET COUNT 75 10x3/uL (130-400)
--- NOTE | 2019-01-01 07:00 | NUR ---
REPORT RECEVIED FROM THE OFF GOING RN. SEE ASSESSMENT IN THE PTS FLOWS SHEET. PT SITTING IN BED. I WAS INFORMED THAT THE MD'S WANT PHYSCIAL THEARPY TO ASSIST WITH GETTING THE PT OOB. ATRAIL AND VETRICULARRLY PACED ON THE MONITORS. TPM SETTINGS: DDD, RATE 80, AMA 10, VMA 20, A SENT 0.5, V SENT 2.0 AV INTERVAL 170. OFF GOING RN CONTACTING DR HALEY/DR PERES ABOUT HOLDING THE LASIX DUE TO BP BEING LOW. WILL HOLD LASIX UNTILL DR PERES SEES THE PT PER DR PERES. PT ON 2L VIA NC. RIGHT IJ CVL NOTED. DRESSING C/D/I. PATENT. SEE IV FLUIDS IN THE PTS FLOW SHEET. SUBSTERNAL DRESSING C/D/I. TPM WIRES NOTED UNDER THE DERSSING. RLE HARVEST SITES ENERGY PROJECT MANAGER AND WELL APPROXIMATED. FC NOTED WITH CLEAR, YELLOW URINE. PT DENIES NEEDS/PAIN AT THIS TIME. INSTRUCTED THE PT TO TCDB QH AND TO USE HER IS 10X'S/H. PT ONLY ABLE TO PULL ABOUT 250 ON HER IS. ONCE PT INSTRUCTED TO COUGH, THE PT HAD CLEAR PHLEM NOTED. BREAKFAST TRAY PROVIDED FOR THE PT. CALL LIGHT IN REACH. WILL CONT POC.
--- NOTE | 2019-01-01 07:19 | NUR ---
CONTACTED DR. HALEY ABOUT SCHEDULED LASIX, PATIENT'S BP 99/54. [address] HALEY, CALLED DR. PERES HE DID NOT ANSWER AT THIS TIME. 0736 DR. HALEY OK WITH GIVING LASIX. 0737 DR. PERES RETURNED CALL, PER HIS ORDERS DO NOT GIVE LASIX AT THIS TIME, UNTIL HE SEES PATIENT.
--- NOTE | 2019-01-01 08:13 | NUR ---
DR PERES AT THE PTS BEDSIDE. HOLD LASIX AND OK TO GET THE PT OOB WITHOUT PHYSCIAL THEARPY.
--- NOTE | 2019-01-01 08:15 | NUR ---
DR PERES UNPLUGGED THE PT FROM THE TPM. PT UNDERLYING RYTHEM JUNCTIONAL. DR PERES STATED TO KEEP THE PT OFF THE TPM.
--- NOTE | 2019-01-01 08:15 | NUR ---
DR PERES CHANGED DOBUTAMINE RATE TO 3MCG/KG/MIN
--- NOTE | 2019-01-01 09:11 | NUR ---
SUBSTERNAL DRESSING CHANGED. TPM WIRES REMAIN INTACT. NO S/SX OF INFECTION NOTED. PT ASSISTED OOB AND INTO THE BEDSIDE CHAIR. PT REQUIRED MAXIMAL ASSISTANCE. VSS. REMAINS IN A JUNCTIONAL RYTHEM. PT REQUESTED A PAIN PILL. SEE MAR. CALL LIGHT IN REACH. WILL CONT POC.
--- NOTE | 2019-01-01 09:53 | NUR ---
Nutrition follow up: Reviewed chart and spoke with pt and nursing Cardiac diet with 10% intake of meals Pt reports some nausea Offered Ensure however pt reports Ensure made her sick Pt is constipated and is not able to eat much meat Offered cottage cheese to help pt meet protein needs-pt agreed. Pt to also drink milk Discussed the importance of protein while healing RD following
[2019-01-01 10:03] LABS: PLATELET ESTIMATE DECREASED
--- NOTE | 2019-01-01 11:00 | NUR ---
REASSESSMENT COMPLETED. SEE FLOW SHEET.
--- NOTE | 2019-01-01 11:02 | NUR ---
HEART RATE INCREASING TO 90-120 AND IRREGULAR. EKG DONE SHOWING AFIB WITH RVR. BP STABLE. DR STAPLETON NURSE, JUANA RN, NOTIFIED TO TELL DR PERES. AWAITING ORDERS.
--- NOTE | 2019-01-01 11:30 | NUR ---
10 CC REMOVED FROM FC BALLON. FC REMOVED PER ORDERS. PT TOLERATED WELL.
--- NOTE | 2019-01-01 11:48 | NUR ---
LUNCH TRAY PROVIDED FOR THE PT. VSS AT THIS TIME. PT DENIES NEEDS. WILL CONT POC.
--- NOTE | 2019-01-01 13:52 | NUR ---
PHYSCIAL THEARPY ASSISTED WITH THE PT GOING TO THE BATHROOM. PT AMBULATING SLOWLEY WITH A STEADY GAIT TO THE BATHROOM. PT VOIDED. PHYSICAL THEARPY ASSISTED THE PT BACK TO HER BEDSIDE CHAIR.
--- NOTE | 2019-01-01 14:21 | NUR ---
PT C/O NAUSEA. PRN ZOFRAN GIVEN. SEE MAR.
--- NOTE | 2019-01-01 17:09 | NUR ---
ASSISTED THE PT TO THE BATHROOM. PT USED A WALKER. A SLOW AND STEADY GAIT WAS NOTED. PT VOIDED CLEAR, YELLOW URINE. ASSISTED BACK INTO HER BEDSIDE CHAIR. MEAL TRAY PROVIDED. VSS. WILL CONT POC.
--- NOTE | 2019-01-01 17:44 | MORECARE ---
CASE MANAGEMENT DISCHARGE SUMMARY PATIENT: SHANIA VALERIO UNIT: [id number] ADM DATE: 12/29/18 AGE: 73 : 47 SEX: F ROOM/BED: [facility] AUTHOR: GUILLERMO LARES PHYSICIAN: REFERRING PHYSICIAN: RADHIKA PERES MD DATE OF SERVICE: 01/01/19 Discharge Plan Patient Name: SHANIA VALERIO [facility] [facility] 1945 Planned Disposition: Inpatient Rehab Anticipated Discharge Date: Discharge Date: Expected LOS: Initial Reviewer: [email or web address] Initial Review Date: 01/01/2019 Generated: 01/01/19 6:44 pm DCPIA - Discharge Planning Initial Assessment Updated by [email or web address]: Niki Gilmore on 01/01/19 5:44 pm * Is the patient Alert and Oriented? Yes * How many steps to enter\exit or inside your home? * PCP NUNO * [facility] * Preadmission Environment Home with Family * ADLs Independent * Other Equipment WALKER X2 , CANE X 2, SHOWER CHAIR, GRABBER * List name and contact numbers for known caregivers / representatives who currently or will assist patient after discharge: VANESSA VALERIO - SPOUSE- [phone] * Verbal permission to speak to the caregivers and representatives has been obtained from the patient. Yes * Community resources currently utilized None * Additional services required to return to the preadmission environment? No * Can the patient safely return to the preadmission environment? Yes * Has this patient been hospitalized within the prior 30 days at any hospital? No Patient Name: SHANIA VALERIO Page [phone] at 1744 All edits/amendments must be made on the electronic document DICTATION DATE: 01/01/191743 ADOPTION SERVICES MANAGER: ALICIA 01/01/191743 RPT#: [id number] DC DATE: STATUS: ADM IN [facility] [address] [place] [address] END OF REPORT
--- NOTE | 2019-01-01 17:55 | MORECARE ---
CASE MANAGEMENT DISCHARGE SUMMARY PATIENT: SHANIA VALERIO UNIT: [id number] ADM DATE: 12/29/18 AGE: 73 : 47 SEX: F ROOM/BED: [facility] AUTHOR: ARNAUD,DOC PHYSICIAN: REFERRING PHYSICIAN: RADHIKA PERES MD DATE OF SERVICE: 01/01/19 Discharge Plan Patient Name: SHANIA VALERIO Facility: [facility]:[place] : 1945 Planned Disposition: Inpatient Rehab Anticipated Discharge Date: Discharge Date: Expected LOS: Initial Reviewer: [email or web address] Initial Review Date: 01/01/2019 Generated: 01/01/19 6:55 pm Comments DCP- Discharge Planning Updated by [email or web address]: Niki Gilmore on 01/01/19 4:[address] Patient Name: SHANIA VALERIO Admission Status: Urgent Accout number: [id number] Admission Date: 12-29-2018 : 1945 Admission Diagnosis: Attending: RADHIKA PERES Current LOS: 3 Anticipated DC Date: Planned Disposition: Inpatient Rehab Primary Insurance: MEDICARE A & B Discharge Planning Comments: CM met with patient at bedside after explaining CM role and obtaining verbal consent. Patient lives at home with her Hank and plans to return there upon discharge. Patient would like inpatient rehab upon discharge. CM discussed availability / needs of home health and medical equipment. Patient states she will have family drive her home upon discharge. CM will continue to follow and assist as needed with discharge planning / needs. [employer]: Niki Gilmore DCPIA - Discharge Planning Initial Assessment Updated by [id number]: Niki Gilmore on 01/01/19 5:44 pm * Is the patient Alert and Oriented? Yes * How many steps to enter\exit or inside your home? * PCP NUNO * [facility] * Preadmission Environment Home with Family * ADLs Independent * Other Equipment WALKER X2 , CANE X 2, SHOWER CHAIR, GRABBER * List name and contact numbers for known caregivers / representatives who currently or will assist patient after discharge: HANK VALERIO - SPOUSE- [phone] * Verbal permission to speak to the caregivers and representatives has been obtained from the patient. Yes * Community resources currently utilized None * Additional services required to return to the preadmission environment? No * Can the patient safely return to the preadmission environment? Yes * Has this patient been hospitalized within the prior 30 days at any hospital? No Last DP export: 01/01/19 4:44 p Patient Name: SHANIA VALERIO Page [phone] at 1755 All edits/amendments must be made on the electronic document DICTATION DATE: 01/01/191754 FACING BASTER: ALICIA 01/01/191754 RPT#: [id number] DC DATE: STATUS: ADM IN [facility] [address] [place] [address] END OF REPORT
--- NOTE | 2019-01-01 19:19 | NUR ---
PATIENT ARRIVED TO UNIT VIA BED, ACCOMPANIED BY OR PERSONNEL. ICU MONITORING INITIATED. LT SUBCLAVIAN CVL PATENT, INFUSING NS AT 100 ML/HR AND NEOSYNEPHRINE AT 0.5 MCG/KG/MIN, WILL TITRATE ORDERED BY PHYSICIAN. CVP AND KIRSTEN ZEROED AND LEVELED WITH GOOD WAVEFORM. MID BACK EPIDRAL SITE NOTED, DRESSING DRY AND INTACT, INFUSING FENTANYL AT 7 ML/HR PRN DOSE OF 5 ML Q15 MIN, VERIFIED WITH DR. GARCIA WHO IS AT BEDSIDE. SEE FLOW SHEET FOR COMPLETE ASSESSMENT. WILL CONTINUE TO MONITOR.
--- NOTE | 2019-01-01 20:15 | NUR ---
PT AWAKE AND ALERT. REQUESTING A PAIN TABLET AND A GLASS OF ICE WATER. MEDS GIVEN. ASSISTED TO RESTROOM. AMBULATES WITH A WALKER INDEPENDENTLY. VOIDED IN RESTROOM. ASSISTED BACK TO BED. CALL LIGHT IN REACH.
--- NOTE | 2019-01-01 22:00 | NUR ---
RESTING, DENIES NEEDS AT THIS TIME, CALL LIGHT WITHIN REACH. WILL CONTINUE TO MONITOR.
--- NOTE | 2019-01-01 23:14 | NUR ---
REASSESSMENT COMPLETED PER FLOW SHEET, SEE FOR DETAILS. NO ACUTE DISTRESS NOTED. DENIES PAIN OR NEEDS. CALL LIGHT WITHIN REACH. WILL CONTINUE TO MONITOR.
[2019-01-02] VITALS (25 sets, daily range): BP systolic 97–134; BP diastolic 39–68
--- NOTE | 2019-01-02 01:00 | NUR ---
DENIES NEEDS AT THIS TIME. NO ACUTE DISTRESS NOTED. CALL LIGHT WITHIN REACH.
--- NOTE | 2019-01-02 03:04 | NUR ---
REASSESSMENT COMPLETED PER FLOW SHEET, SEE FOR DETAILS. NO ACUTE CHANGES NOTED. ASSISSTED OOB TO BR, VOID X1. ASSISSTED BACK IN BED. REPOSITIONED IN BED. DENIES OTHER NEEDS. CALL LIGHT WITHIN REACH.
--- NOTE | 2019-01-02 04:10 | NUR ---
AT BEDSIDE, UPDATE GIVEN, QUESTIONS ANSWERED.
--- NOTE | 2019-01-02 05:00 | NUR ---
COMPLETE BED BATH GIVEN, COMPLETE BED LINEN CHANGE PROVIDED. TOLERATED WELL.
--- NOTE | 2019-01-02 06:00 | NUR ---
ASSISSTED OOB TO CHAIR, USES WALKER TO AMBULATE, TOLERATED WELL. CALL LIGHT AND BELONGINGS WITHIN REACH. WILL CONTINUE TO MONITOR.
[2019-01-02 06:33] LABS: HEMATOCRIT 31.3 % (36.0-48.0); HEMOGLOBIN 10.1 g/dL (12-16); MCHC 32.3 g/dL (31.0-37.0); MCV 83.7 fL (80.0-100.0); MEAN PLATELET VOLUME 10.4 fL (7.4-10.4); RBC 3.74 10x6/uL (4.00-5.40); RDW 15.4 % (11.5-14.5); WBC 9.5 10x3/uL (4.8-10.8)
[2019-01-02 06:59] LABS: ALBUMIN 2.5 g/dL (3.4-5.0); BILIRUBIN - TOTAL 0.49 mg/dL (0.2-1.3); CALCIUM 8.6 mg/dL (8.5-10.1); CARBON DIOXIDE 27.8 mmol/L (21.0-32.0); CREATININE - SERUM 0.9 mg/dL (0.6-1.3); PROTEIN - SERUM 5.8 g/dL (6.4-8.2)
--- NOTE | 2019-01-02 07:00 | NUR ---
REPORT RECEVIED FROM THE OFF GOING RN. SEE ASSESSMENT IN THE PTS FLOW SHEET. PT SITTING UP AT THE SIDE OF THE BED. INSRUCTED PT TO USE IS 10X'S/H. PT PULLS ABOUT 250-500. PRODUCTIVE COUGH NOTED WITH CLEAR SPUTUM. VSS AT THIS TIME. CALL LIGHT IN REACH. WILL CONT POC.
[2019-01-02 07:01] LABS: ANION GAP 12.7 mmol/L (8-16); POTASSIUM - SERUM 3.5 mmol/L (3.5-5.1)
--- NOTE | 2019-01-02 08:00 | NUR ---
DR PERES AT THE PTS BEDSIDE. N.O. AMIODORONE 200 BID, DC IV AMIODORONE, WEEN DOBUTAMINE BY NOON. CONSULT VASULAR ACCESS FOR PICC LINE AND DC CVL.
--- NOTE | 2019-01-02 08:54 | NUR ---
AM MEDS GIVEN WITH NO ISSUES. OFFERED PAIN PILL TO PT AND PT REFUSED STATING "NOT NOW". CALL LIGHT IN REACH. WILL CONT POC.
--- NOTE | 2019-01-02 09:37 | NUR ---
PT ASSISTED TO THE BATHROOM. PT VOIDED A MEDIUM VOID OF CLEAR YELLOW URINE. PT ASSISTED BACK INTO HER CHAIR. PT TOLERATED WELL. WILL CONT POC.
--- NOTE | 2019-01-02 10:24 | NUR ---
PT AMBULATED 54 FEET WITH PHYSCIAL THEARPY WITH A ROLLING WALKER. SLOW AND STEAD GAIT NOTED. PT TOLERATED WELL.
--- NOTE | 2019-01-02 11:58 | NUR ---
Rehab Note- Acute Inpatient Rehab prescreen order received. The patient is a good inpatient acute rehab candidiate when medically stable. Will follow at this time. Will visit with the patient. Thank you for this referral! Tere Martins RN Clinical Liaison, [facility] Rehab
--- NOTE | 2019-01-02 12:07 | OP ---
PATIENT NAME: SHANIA VALERIO MEDICAL RECORD: [id number] :[birth year] [facility] ADMISSION DATE:12/29/18 SURGEON: JASSON PERES MD DATE OF OPERATION: 12/29/2018 SURGEON: Jasson Peres MD CREATIVE STRATEGIST: Johnny Eldridge OPERATION PERFORMED: 1. Aortic valve replacement (21 mm pericardial bioprosthesis). 2. Mitral valve annuloplasty (32 mm ring). 3. Coronary artery bypass graft times 1 (reverse saphenous vein graft from aorta to posterior descending artery). 4. Surgical Maze procedure utilizing radiofrequency ablation and cryo. PREOPERATIVE DIAGNOSES: Aortic stenosis, aortic insufficiency, mitral regurgitation, coronary artery disease, paroxysmal atrial fibrillation, severe arthritis and degenerative joints with debilitated state, history of right leg stent. POSTOPERATIVE DIAGNOSES: Aortic stenosis, aortic insufficiency, mitral regurgitation, coronary artery disease, paroxysmal atrial fibrillation, severe arthritis and degenerative joints with debilitated state, history of right leg stent. ANESTHESIA: General endotracheal anesthesia. ESTIMATED BLOOD LOSS: Total cardiopulmonary bypass with Cell Saver retransfusion, one packed red blood cells, one platelet, and 2 FFP. SPECIMENS: Aortic valve leaflets. CONDITION: Stable. DISPOSITION: CV ICU. COMPLICATIONS: None. OPERATIVE FINDINGS: 1. Transesophageal echocardiography revealed normal ejection fraction, severe mitral regurgitation, moderate aortic insufficiency with a 5 mm vena contracta and moderate aortic stenosis, trace mitral regurgitation, and left ventricular hypertrophy. Initial pulmonary pressures in the range of 40/20 and sinus rhythm. 2. Open vein harvest from the upper left leg due to previous right leg stenting, the vein was thin walled and varicose with 2 large deep perforators consistent with severe varicose veins and dissection removed was thin and 4-5 mm in the main portion and then the more distal part of the vein graft about 7-8 mm and relatively thick-walled but the normal caliber portion of vein did not extend any further inferiorly after a deep scientific systems analyst, so the large caliber portion had to be used. 3. Significant intrapericardial adhesions consistent with previous evidence of pericarditis. 4. Friable epicardium requiring aortic cross clamp to perform the pulmonary OPERATIVE REPORT [id number] SHANIA VALERIO vein isolation portion of the Maze procedure. 5. Surgical maze procedure right and left heart utilizing radiofrequency ablation and cryo. 6. Thickened mitral valve leaflets, particularly the anterior leaflet, but it was not significantly redundant, initially a central regurgitant jet and after placement of a 32-mm ring, no regurgitation noted, but no mitral stenosis. 7. Left atrial appendage oversewn from within the left atrium. 8. Aortic valve with fused right and noncoronary cusp, moderate calcification of the annulus. 9. Significant ascending aortic calcification at the base of the innominate and below the sinotubular junction. 10. Transesophageal echocardiography after separation from cardiopulmonary bypass with no mitral regurgitation or perivalvular aortic insufficiency. 11. Returned to a junctional rhythm and later AV paced. OPERATIVE INDICATION: Aortic insufficiency and stenosis, mitral regurgitation, coronary artery disease, and paroxysmal atrial fibrillation. PROCEDURE NOTE IN DETAIL: The patient was brought to the operative suite. General anesthesia obtained. The patient was prepped and draped. Greater saphenous vein was harvested with bridging incision in the left thigh. Side branches were divided with clips. Later the leg was closed in 2 layers. Mediastinotomy incision was made. The subcutaneous tissue was divided with electrocautery. The sternum was divided with a saw. The pericardium was opened and adhesions were encountered, they were taken down sharply to allow exposure of the atrium and the aorta and then along the inferior wall as much as possible with the patient's blood pressure. Heparin was given. Aorta was cannulated. Cannula was then placed in the superior vena cava and inferior vena cava and after activated clotting time was appropriately elevated, the patient was placed on cardiopulmonary bypass. The remainder of the intrapericardial adhesions were taken down. Attempt of lifting the heart to expose the left pulmonary veins resulted in tearing of the epicardium down into the myocardium. Therefore, this was aborted and a small opening was made in the right atrium. The 3 right atrial radiofrequency ablation lines were made and the retrograde cardioplegia cannula was inserted through a pursestring. Patient was cooled. Crossclamp was placed. Cardioplegia was given antegrade and a 14-gauge angiocatheter without significant dilatation and then retrograded and retrograde cardioplegia was repeated during the crossclamp time. The left atrium was opened through the interatrial groove after completing the 2 pulmonary vein isolation ablation lines and then the remainder of the radiofrequency ablation box lesions and the cryo lesions were completed. Left atrial appendage base was oversewn. Valve was inspected, sized. Interrupted sutures were placed. The valve sewing was carefully lowered into place and tied. The valve was checked and had no further regurgitation. The aortic root was then opened. Leaflets were removed, thoroughly irrigated. All bits of loose debris were removed and thoroughly irrigated again and then the valve was sized to 21 mm. Pledget sutures were placed from the ventricular to the aortic side brought through the valve sewing ring, which was carefully lowered into place. Aortotomy was then closed with several pledgeted sutures along the right side and double running pledgeted suture line. Aortic punch site was made with a 4.0 mm punch and the old 14-gauge angiocatheter site was used for a deairing site. Distal anastomosis was performed, proximal anastomosis. The patient was rewarmed. Left atrial opening was closed with double running pledgeted suture OPERATIVE REPORT [id number] SHANIA VALERIO. The patient was placed in Trendelenburg position, crossclamp was removed. Proximal anastomosis was tied down. Vein graft was deaired. Flow was restored. Left ventricular apex was de-aired using transesophageal echocardiography and then with the patient fully rewarmed, the previous cardioplegia site was oversewn. Retrograde cardioplegic cannula was removed and that site was oversewn. Suture lines were inspected for bleeding. Atrial and ventricular pacing wires were placed and the patient was paced. The patient was weaned from cardiopulmonary bypass and was stable. Venous cannulae were removed. The aortic cannula was removed and the site was oversewn with a pledgeted Prolene suture. Protamine was given. Thorough irrigation was undertaken. Surgiflo was used along the tear in the anterior portion of the left ventricle and good hemostasis was ensured. Drains were placed in the mediastinum and right pleural cavity. The pericardial fat was approximated over the aorta. Sternum was closed with wires. Additional portion of Surgiflo was used along the edge of the sternum. Fascia was closed. Subcutaneous tissue was closed. Skin was closed. Dermabond was placed. The needle and sponge counts were reported as correct and the patient was taken to ICU in stable condition. TRANSINT:[id number] Voice Confirmation ID: [id number] DOCUMENT ID: [id number] JASSON PERES MD at 1207 CC: SHAHIDA REINA MD and ESTIVEN MCKENZIE [id number] DICTATION DATE: 12/29/18 1720 CASE PREPARER AND LINER: 12/29/18 2359 ADM IN [facility] [address] [id number]
--- NOTE | 2019-01-02 13:00 | NUR ---
PT ASSISTED TO THE BATHROOM. PT VOIDED. BACK INTRO BED FOR PICCLINE PLACEMENT.
--- NOTE | 2019-01-02 13:13 | NUR ---
REPORT GIVEN TO DERIC MASSEY.
--- NOTE | 2019-01-02 13:30 | NUR ---
RECEIVED REPORT FROM BRYSON ROSARIO. PT SITTING UP IN CHAIR WITH STABLE VS. WILL CHECK ORDERS AND CONTINUE TO MONITOR
--- NOTE | 2019-01-02 13:58 | NUR ---
VASCULAR ACCESS NURSE PLACED PICC LINE IN THE LEFT UPPER ARM. CXR CONFIRMS THAT IT WAS NOT IN THE RIGHT POSITION. DR PERES CALLED AND NOTIFIED. DC PICC LINE AND LEAVE THE RIGHT CENTRAL LINE IN.
--- NOTE | 2019-01-02 14:34 | NUR ---
PHYSICAL THERAPY AMBULATED PT TO YANCEY AND BACK TO BED.
--- NOTE | 2019-01-02 16:10 | NUR ---
ASSISTED PT TO BR TO VOID. TRANSFERRED BACK TO CHAIR. VSS
--- NOTE | 2019-01-02 18:10 | NUR ---
ASSISTED PATIENT TO BATHROOM TO VOID. TRANSFERRED BACK TO BED. VSS
--- NOTE | 2019-01-02 19:21 | NUR ---
REPORT RECEIVED, SHIFT ASSESSMENT COMPLETED PER FLOW SHEET. AAOX4. PPP. RT IJ CVL PATENT, DRESSING C/D/I. CARRIE HOSE AND SCD'S ON. NO ACUTE DISTRESS NOTED. DENIES NEEDS. CALL LIGHT WITHIN REACH. SEE FLOW SHEET FOR COMPLETE ASSESSMENT. WILL CONTINUE TO MONITOR.
--- NOTE | 2019-01-02 21:41 | NUR ---
SCHEDULED MEDS GIVEN, WATER PROVIDED. TOLERATED WELL. DENIES OTHER NEEDS. CALL LIGHT WITHIN REACH.
--- NOTE | 2019-01-02 23:14 | NUR ---
REASSESSMENT COMPLETED PER FLOW SHEET, SEE FOR DETAILS. ASSISSTED OOB TO USE BR, VOID X1. ASSISSTED BACK IN BED. CALL LIGHT WITHIN REACH. DENIES OTHER NEEDS. WILL CONTINUE TO MONITOR.
[2019-01-03] VITALS (24 sets, daily range): BP systolic 106–128; BP diastolic 40–109
--- NOTE | 2019-01-03 01:00 | NUR ---
RESTING NO ACUTE DISTRESS NOTED. DENIES NEEDS. CALL LIGHT WITHIN REACH. WILL CONTINUE TO MONITOR.
--- NOTE | 2019-01-03 03:01 | NUR ---
REASSESSMENT COMPLETED PER FLOW SHEET, SEE FOR DETAILS. NO ACUTE CHANGES NOTED. ASSISSTED OOB TO BR, VOID X1. ASSISSTED BACK TO BED. RT IJ CVL DRESSING CHANGED. DENIES NEEDS. CALL LIGHT WITHIN REACH. WILL CONTINUE TO MONITOR.
--- NOTE | 2019-01-03 04:34 | NUR ---
PATIENT OUT OF ROOM FOR CHEST XR, ACCOMPANIED BY RT PERSONNEL.
--- NOTE | 2019-01-03 04:49 | NUR ---
PATIENT BACK IN ROOM FROM XR. SITTING UP IN CHAIR PER HER REQUEST. CALL LIGHT WITHIN REACH.
[2019-01-03 06:53] LABS: HEMATOCRIT 29.9 % (36.0-48.0); HEMOGLOBIN 9.6 g/dL (12-16); MCH 27.1 pg (26.0-34.0); MCHC 32.1 g/dL (31.0-37.0); MCV 84.5 fL (80.0-100.0); RBC 3.54 10x6/uL (4.00-5.40); RDW 15.3 % (11.5-14.5)
[2019-01-03 07:02] LABS: ALBUMIN 2.4 g/dL (3.4-5.0); ALKALINE PHOSPHATASE 90 U/L (46-116); ALT (SGPT) 18 U/L (10-68); BILIRUBIN - TOTAL 0.49 mg/dL (0.2-1.3); CALC OSMOLALITY 272 mosm/kg (275-300); CALCIUM 8.5 mg/dL (8.5-10.1); CARBON DIOXIDE 28.5 mmol/L (21.0-32.0); CHLORIDE - SERUM 99 mmol/L (98-107); CREATININE - SERUM 0.8 mg/dL (0.6-1.3); GLUCOSE 91 mg/dL (74-106); POTASSIUM - SERUM 3.9 mmol/L (3.5-5.1); PROTEIN - SERUM 5.6 g/dL (6.4-8.2); SODIUM 135 mmol/L (136-145); UREA NITROGEN 22 mg/dL (7-18); eGFR NON AFRICAN AMERICAN 75 mL/min (90-120)
[2019-01-03 07:04] LABS: WBC 6.9 10x3/uL (4.8-10.8)
--- NOTE | 2019-01-03 07:19 | NUR ---
PT SITTING UP IN CHAIR AWAKE ALERT AND ORIENTED. VSS. CALL LIGHT IN REACH. NO COMPLAINTS. WILL CONTINUE TO MONITOR
--- NOTE | 2019-01-03 08:49 | NUR ---
PATIENT ATE 90% BREAKFAST. NURSE ASSISTED TO BATHROOM TO VOID. PT WIPED SELF. ASSISTED BACK TO CHAIR AND HOOKED UP TO MONITOR
--- NOTE | 2019-01-03 10:12 | NUR ---
PT ASSISTED UP TO TOILET. URINATED ONLY. PHYSICAL THERAPY NOW AT BEDSIDE TO TAKE PT FOR WALK.
--- NOTE | 2019-01-03 10:24 | NUR ---
PHYSICAL THERAPY AMBULATED PATIENT DOWN YANCEY VIA WALKER. RETURNED TO CHAIR IN ROOM. VSS
--- NOTE | 2019-01-03 11:15 | NUR ---
CHANGED SUBSTERNAL DRESSING. APPLIED BETADINE TO INCISION SITES, APPLIED BIOPATCHES TO TPM WIRES. APPLIED NEW GAUZE AND TAPED DOWN WITH TEGADERM
--- NOTE | 2019-01-03 13:12 | NUR ---
GAVE PATIENT FULL HIBBA CLEANSE BATH. CHANGED GOWN AND LINENS.
--- NOTE | 2019-01-03 13:15 | NUR ---
Nutrition follow up Cardiac diet ordered with 60-80% intake of meals past 2 days Pt reports no nausea past 2 days Pt reports good appetite today RD following
--- NOTE | 2019-01-03 15:00 | NUR ---
ASSISTED PATIENT TO VOID. VSS
--- NOTE | 2019-01-03 15:45 | NUR ---
DR. PERES PERFORMED THORACENTESIS TO LEFT PLEURAL SPACE. INSTERTED NEEDLE THROUGH LEFT BACK AND ASPIRATED 500CC OF BLOODY FLUID. REMOVED AND PLACED DRESSING OVER SITE. PT STABLE. CHEST X-RAY ORDERED
--- NOTE | 2019-01-03 17:00 | NUR ---
PT RESTING IN BED. DINNER TRAY SERVED. VSS.
--- NOTE | 2019-01-03 21:00 | NUR ---
1900 REPORT RECEIVED CARE ASSUMED. PT PERFORMED IS OF 250-500. PT STATES SHE IS NOT SHORT OF BREATH. ASSESSMENT DONE SEE FLOW SHEET. VSS. PT AMBULATED TO AND FROM BATHROOM WITH WALKER. MINIMAL ASSISTANCE PROVIDED. VSS NO SIGNS OF ACUT EDISTRESS NOTED WILL CONINTUE TO MONITOR. 2100 PT AMBULATED TO BATHROOM WITH WALKER MINIMAL ASSISTANCE PROVIDED. VSS. MEDS GIVEN PER MAR WILL CONTINUE TO MONITOR.
--- NOTE | 2019-01-03 21:30 | NUR ---
PT CONVERTS FROM NS TO AFIB CONTROLLED AND BACK WILL CONITNUE TO MONITOR.
--- NOTE | 2019-01-03 23:00 | NUR ---
REASSESSMENT DONE SEE FLOW SHEET. PT AMBULATED TO BATHROOM MINIMAL ASSISTANCE GIVEN VSS WILL CONTINEU TO MONITOR.
[2019-01-04] VITALS (24 sets, daily range): BP systolic 91–129; BP diastolic 43–88
--- NOTE | 2019-01-04 05:00 | NUR ---
0100 PT RESTING IN BED VSS NOS GINS OF ACUTE DISTRESS NOTED. 0300 REASSESSMENT DONE SEE FLOW SHEET VSS NO SIGNS OF ACUTE DISTRESS NOTED. 0500 PT UP TO CHAIR. FAMILY AT BEDSIDE. VSS WATER PROVIDED.
[2019-01-04 05:34] LABS: BASOPHILS 0 % (0-2); EOSINOPHILS 0.3 % (0-7); HEMATOCRIT 28.9 % (36.0-48.0); HEMOGLOBIN 9.2 g/dL (12-16); IMMATURE GRANULOCYTES 0.2 % (0-5); LYMPHOCYTES 14.1 % (15-50); MCH 27.1 pg (26.0-34.0); MCHC 31.8 g/dL (31.0-37.0); MCV 85.3 fL (80.0-100.0); MEAN PLATELET VOLUME 9.6 fL (7.4-10.4); MONOCYTES 12.3 % (2-11); NEUTROPHILS 73.1 % (40-80); PLATELET COUNT 122 10x3/uL (130-400); RBC 3.39 10x6/uL (4.00-5.40); RDW 15.2 % (11.5-14.5); WBC 6.2 10x3/uL (4.8-10.8)
[2019-01-04 06:00] LABS: ALBUMIN 2.3 g/dL (3.4-5.0); ALKALINE PHOSPHATASE 98 U/L (46-116); ALT (SGPT) 17 U/L (10-68); BILIRUBIN - TOTAL 0.58 mg/dL (0.2-1.3); CALC OSMOLALITY 270 mosm/kg (275-300); CALCIUM 8.6 mg/dL (8.5-10.1); CARBON DIOXIDE 29.7 mmol/L (21.0-32.0); CHLORIDE - SERUM 100 mmol/L (98-107); CREATININE - SERUM 0.8 mg/dL (0.6-1.3); GLUCOSE 98 mg/dL (74-106); MAGNESIUM - SERUM 1.7 mg/dL (1.8-2.4); POTASSIUM - SERUM 4.2 mmol/L (3.5-5.1); PROTEIN - SERUM 5.6 g/dL (6.4-8.2); SODIUM 134 mmol/L (136-145); UREA NITROGEN 20 mg/dL (7-18); eGFR NON AFRICAN AMERICAN 75 mL/min (90-120)
--- NOTE | 2019-01-04 08:22 | NUR ---
AWAKES EASILY TO VERBAL STIMULI, UP IN CHAIR AT BEDSIDE. MONITOR ATRIAL FIB OCC SINUS RHYTHM NOTED. CHEST DRESSING DRY AND INTACT. DENIES ANY PAIN. STATES SHE IS PASSING ALOT OF BIG GAS. NO DISTRESS.
--- NOTE | 2019-01-04 09:47 | NUR ---
AMBULATED TO BATHROOM WITH WALKER. PASSING GAS NO BM. PO MEDS GIVEN TAKEN WITHOUT DIFFICULTY. AMBULATED IN [place] PER PHYSICAL THERAPY TOLERATED FAIR.
--- NOTE | 2019-01-04 11:00 | NUR ---
AMBULATED TO BATHROOM. BED BATH GIVEN. REDNESS NOTED IN GROIN AREA. NO SKIN BREAKDOWN OR REDNESS IN PRESSURE AREAS. PATIENT FEELS SHE NEEDS SOMETHING FOR YEAST. BATH WITH HIBCLENS. PATIENT TOLERATED FAIR. AMBULATED BACK TO CHAIR. NO DISTRESS NOTED.
--- NOTE | 2019-01-04 11:50 | OP ---
PATIENT NAME: SHANIA VALERIO MEDICAL RECORD: [id number] :49 LOCATION:[facility] ADMISSION DATE:12/29/18 SURGEON: RADHIKA SMITH MD DATE OF OPERATION: 01/03/2019 SURGEON: Radhika Smith MD PROCEDURE PERFORMED: Left ultrasound-guided thoracentesis. INDICATIONS: Left pleural effusion. PROCEDURE NOTE: With the patient seated upright in the intensive care unit with a heart rate, blood pressure, and pulse oximetry monitored. Ultrasound was used to locate the left pleural effusion and a window for aspiration in the left posterior chest. Left chest was sterilely prepped and draped. A 1% Xylocaine was used for local anesthetic. A 2 mm skin incision was made. Thoracentesis catheter was introduced over the superior surface of the rib and into the pleural cavity where a total of 400 cc of serosanguineous fluid were removed without difficulty and there was no residual by ultrasound. No apparent complications. Chest x-ray negative for pneumothorax. TRANSINT:[id number] Voice Confirmation ID: [id number] DOCUMENT ID: [id number] RADHIKA SMITH MD at 1150 CC: [id number] DICTATION DATE: 01/03/19 1622 TOP COLLAR BASTER: 01/04/19 0310 ADM IN [place] [address] [place] [address]
--- NOTE | 2019-01-04 11:52 | NUR ---
LUNCH TRAY SERVED
--- NOTE | 2019-01-04 13:12 | NUR ---
FAMILY HERE UPDATE GIVEN
--- NOTE | 2019-01-04 13:13 | NUR ---
AMBULATED TO RESTROOM. TOLERATES FAIR
--- NOTE | 2019-01-04 14:19 | NUR ---
AMBULATED IN [place] PER PHYSICAL THERAPY. RETURNED TO BED. [facility] C[facility]TRAL LINE REMOVED PER ORDERS DR. PERES. PRESSURE HELD 5 MIN. NO BLEEDING AT SIDE. TEGRADERM APPLIED OVER 2X2 FOLDED INTO SQUARE. PATEINT TOLERATED FAIR. NO BRUSING AT SITE.
--- NOTE | 2019-01-04 16:22 | NUR ---
PATIENT AMBULATED TO BATHROOM. RETURNED TO BED. TEMP PACER WIRES PULLED BY JUANA. DASH TOLERATED WELL
--- NOTE | 2019-01-04 17:04 | NUR ---
UP TO BATHROOM. DINNER TRAY SERVED
--- NOTE | 2019-01-04 18:04 | NUR ---
RESTING IN BED NO DISTRESS. VOIDING IN URINAL. TEMP PACEMAKER WIRES CONNECTED TO BATTERY. BATTERY TURNED OFF. RIJ INFUSING WITH ZINCE AND PLASMALYTE. MONITOR SR. ONLY HURTS WHEN HE COUGHS. WEAK COUGH. GOOD INCENTIVE SPRIOMETRY TO 1500ML.
--- NOTE | 2019-01-04 18:47 | NUR ---
AMBULATED TO BATHROOM HAD SMALL BOWEL MOVEMENT. RETURNED TO BED. CALL LIGHT IN HAND. MONITOR ATRIAL FIB MOST OF TODAY.
--- NOTE | 2019-01-04 19:10 | NUR ---
SHIFT ASSESSMENT COMPLETE. A&O X4 WITH NO COMPLAINTS OF PAIN OR DISCOMFORT AT THIS TIME. PERRLA, 3 MM, BRISK REACTION TO LIGHT. S1S2 AUDIBLE, HR 76 BPM, CONTROLLED A-FIB SHOWING ON MONITOR. RR SHALLOW, CLEAR LUNG SOUNDS HEARD BILAT THROUGHT ALL LOBES, 2 L VIA NC ON, O2 SAT 98%. MIDSTERNAL INCISION MORALES, NO S/S OF INFECTION NOTED. SUBSTERNAL BANDAGES SEEN, NO DRAINAGE NOTED. ABD ROUND AND SOFT TO TOUCH, BS ACTIVE X4. RADIAL AND PEDAL PULSES PALP. L UPPER BACK DRESSING CDI. ASSISTED PT TO RESTROOM, 200 ML VOID, CLEAR YELLOW. PT BACK IN BED, GAIT STEADY. IS USE X10, GOOD EFFORT, 250-500 ML. WILL CONT TO ENCOURAGE IS USE. REFRESHMENTS BROUGHT TO BEDSIDE. NO FURTHER NEEDS AT THIS TIME. VSS. WILL CONT WITH POC.
--- NOTE | 2019-01-04 21:30 | NUR ---
CALLED PHARMACY FOR BACTOBAN OINTMENT.
--- NOTE | 2019-01-04 23:05 | NUR ---
REASSESSMENT COMPLETE. ASSISTED PT TO RESTROOM, CLEAR YELLOW VOID. PT BACK IN BED RESTING WITH NO COMPLAINTS OF PAIN OR DISCOMFORT. SEE FLOWSHEET FOR FURTHER DETIALS. VSS. CALL LIGHT IN REACH, BED IN LOWEST POSITION. WILL CONT WITH POC.
[2019-01-05] VITALS (10 sets, daily range): BP systolic 98–142; BP diastolic 41–72
--- NOTE | 2019-01-05 01:00 | NUR ---
PT RESTING WITH NO SIGNS OF ACUTE DISTRESS NOTED. WILL CONT WITH POC. CALL LIGHT IN REACH, BED IN LOWEST POSITION.
--- NOTE | 2019-01-05 03:00 | NUR ---
REASSESSMENT COMPLETE. ASSISTED PT TO RESTROOM, GAIT STEADY. PT IS IN GOOD SPIRITS. VSS. NO CHANGES IN PT CONDITION. SEE FLOWSHEET FOR FURTHER DETAILS. CALL LIGHT IN REACH, BED IN LOWEST POSITION. WILL CONT WITH POC.
--- NOTE | 2019-01-05 05:10 | NUR ---
ASSISTED PT TO CHAIR FROM XRAY. PT TOLERATED WELL. IN ROOM. REFRESHMENTS BROUGHT TO THEM. NO FURTHER NEEDS AT THIS TIME. WILL CONT WITH POC.
[2019-01-05 05:48] LABS: BASOPHILS 0 % (0-2); EOSINOPHILS 0.3 % (0-7); HEMATOCRIT 30.2 % (36.0-48.0); HEMOGLOBIN 9.7 g/dL (12-16); IMMATURE GRANULOCYTES 0.3 % (0-5); LYMPHOCYTES 11.8 % (15-50); MCH 27.1 pg (26.0-34.0); MCHC 32.1 g/dL (31.0-37.0); MCV 84.4 fL (80.0-100.0); MEAN PLATELET VOLUME 9.7 fL (7.4-10.4); NEUTROPHILS 75.6 % (40-80); PLATELET COUNT 139 10x3/uL (130-400); RBC 3.58 10x6/uL (4.00-5.40); WBC 7.1 10x3/uL (4.8-10.8)
[2019-01-05 05:59] LABS: ANION GAP 9.4 mmol/L (8-16); CALCIUM 8.9 mg/dL (8.5-10.1); CREATININE - SERUM 0.9 mg/dL (0.6-1.3); POTASSIUM - SERUM 4.4 mmol/L (3.5-5.1)
[2019-01-05] MEDS ORDERED: ELIQUIS5 MG PO (08:33)
[2019-01-05] MEDS ORDERED: AMIODARONE HCL200 MG PO (08:34)
[2019-01-05] MEDS ORDERED: PERCOCET 5-3251 TAB PO (08:35)
[2019-01-05] MEDS ORDERED: LASIX40 MG PO (08:36)
[2019-01-05] MEDS ORDERED: K-DUR20 MEQ PO (08:38)
[2019-01-05] MEDS ORDERED: FLORAJEN3 CAPS460 MG PO (08:39)
[2019-01-05] MEDS ORDERED: Senokot-S Tablet PO (08:40)
[2019-01-05] MEDS ORDERED: NYSTATIN1 PWD TOPICAL (08:41)
--- NOTE | 2019-01-05 09:40 | TEE ---
PATIENT:SHANIA VALERIO MEDICAL RECORD: [id number] LOCATION:[place] [address] AGE OF PATIENT: 73 ADMISSION DATE: 12/29/18 SEX: F REFERRING PHYSICIAN: INTERPRETING PHYSICIAN: ESTIVEN ANTONIO MD TRANSESOPHAGEAL ECHOCARDIOGRAM Date: 12/29/18 KORTNEY CHARGE Y INDICATIONS: CABG/MVR/AVR PREMEDICATIONS: PATIENT'S RESPONSE PROCEDURE DOPPLER MEASUREMENTS: LVIT LA PA RA LVOT RVOT Asc. Ao AV Gradient Peak 155 AV Mean 95 AV Area 2.7 MV Gradient Peak MV Mean MV Area INTERPRETATION: LVd: 3.0 cm LVs: 1.7 cm LVOT diam: 2.1 cm Doppler: 2-D: COLOR FLOW DOPPLER NORMAL SALINE STUDY: MISCELLANOUS: DIAGNOSIS: PLAN: Brush Finisher:Grey Antonio Soup Person: Grey RAMIREZ COMMENTS: DATE OF SERVICE: 12/29/2018 PROCEDURE: Transesophageal echo evaluation of valvular structures during bypass surgery and aortic valve replacement. FINDINGS: 1. Left ventricular chamber size is within normal limits. Left ventricular systolic function is normal. Overall ejection fraction estimated at 55%. 2. Left atrium, right atrium and right ventricular chamber sizes are mildly TRANSESOPHAGEAL ECHOCARDIOGRAM REPORT [id number] SHANIA VALERIO dilated. 3. Valvular structures: Aortic valve demonstrates severe calcific aortic stenosis; however, this is not a new finding. The patient is scheduled for aortic valve replacement. Elsewise the valvular structures have normal structure and motion. 4. Doppler interrogation elsewise reveals moderate mitral regurgitation, trace tricuspid regurgitation, no other valvular insufficiency or stenosis. 5. No evidence of pericardial effusion or left ventricular thrombus. TRANSINT:[id number] Voice Confirmation ID: [id number] DOCUMENT ID: [id number] at 0940 CC: [id number] DICTATION DATE: 01/02/19 1642 FORM CARPENTER: 01/03/19 0403 ADM IN [place] [address] [place] [address]
--- NOTE | 2019-01-05 09:41 | NUR ---
0700 PT RECIEVED UP IN CHAIR ALERT AND ORIENTED O2 2L NC, HR A FIB, SEE SHIFT ASSESSMENT FOR DETAILS 0830 AM MEDS AND BREAKFAST ATE WITHOUT DIFFICULTY, AMBULATED TO BATHROOM WITH WALKER NO DIFFICULTY 0900 AMBULATED WITH PT
--- NOTE | 2019-01-05 11:20 | NUR ---
PT TRANSFERRED TO 2300, REPORT GIVEN TO NGOZI MASSEY AND AWARE
--- NOTE | 2019-01-05 11:27 | NUR ---
PT DC'D TO REHAB AT THIS TIME, VIA WHEELCHAIR
--- NOTE | 2019-01-05 19:23 | MORECARE ---
CASE MANAGEMENT DISCHARGE SUMMARY PATIENT: SHANIA VALERIO UNIT: [id number] ADM DATE: 12/29/18 AGE: 73 : [birth year] SEX: F ROOM/BED: [facility] AUTHOR: ARNAUD,DOC PHYSICIAN: REFERRING PHYSICIAN: RADHIKA PERES MD DATE OF SERVICE: 01/05/19 Discharge Plan Patient Name: SHANIA VALERIO Facility: [facility]:[place] : 1945 Planned Disposition: Inpatient Rehab Anticipated Discharge Date: Discharge Date: 01/05/2019 Expected LOS: Initial Reviewer: [email or web address] Initial Review Date: 01/01/2019 Generated: 01/05/19 8:23 pm Comments DCP- Discharge Planning Updated by [email or web address]: Niki Gilmore on 01/05/19 6:[address] Patient Name: SHANIA VALERIO Encounter No: [id number] : 1945 Primary Insurance: MEDICARE A & B Anticipated DC Date: Planned Disposition: Inpatient Rehab External Planned Provider: : Elvi/America KENNEDY 01/05/19 @ 1005 DCP follow-up note: Patient and family in agreement with discharge plan. No changes to plan. Case management will follow and assist as needed. Niki Gilmore DCP- Discharge Planning Updated by [email or web address]: Niki Gilmore on 01/01/19 4:[address] Patient Name: SHANIA VALERIO Admission Status: Urgent Accout number: [id number] Admission Date: 12-29-2018 : 1945 Admission Diagnosis: Attending: RADHIKA PERES Current LOS: 3 Anticipated DC Date: Planned Disposition: Inpatient Rehab Primary Insurance: MEDICARE A & B Discharge Planning Comments: CM met with patient at bedside after explaining CM role and obtaining verbal consent. Patient lives at home with her Hank and plans to return there upon discharge. Patient would like inpatient rehab upon discharge. CM discussed availability / needs of home health and medical equipment. Patient states she will have family drive her home upon discharge. CM will continue to follow and assist as needed with discharge planning / needs. Maintenance Mechanic Elevators: Niki Gilmore DCPIA - Discharge Planning Initial Assessment Updated by [email or web address]: Niki Gilmore on 01/01/19 5:44 pm * Is the patient Alert and Oriented? Yes * How many steps to enter\exit or inside your home? * PCP [facility] * [facility]acy [facility] * Preadmission Environment Home with Family * ADLs Independent * Other Equipment WALKER X2 , CANE X 2, SHOWER CHAIR, GRABBER * List name and contact numbers for known caregivers / representatives who currently or will assist patient after discharge: HANK VALERIO - [facility]- [phone] * Verbal permission to speak to the caregivers and representatives has been obtained from the patient. Yes * Community resources currently utilized None * Additional services required to return to the preadmission environment? No * Can the patient safely return to the preadmission environment? Yes * Has this patient been hospitalized within the prior 30 days at any hospital? No Coverage Notice Reviewer: [email or web address] - Niki Gilmore Notice Issued Date-Time: 01/05/2019 10:05 Notice Type: IM Discharge Notice Notice Delivered To: Patient Relationship to Patient: Self Aircraft Machinist Helper Name: Delivery Method: HAND - Hand Delivered Milena Days: Prior Verbal Notification: Recipient Understood Notice: Yes Recipient Signature: Yes Med Rec Note Co-signed by Attending: Coverage Notice Comment: Last DP export: 01/01/19 4:55 p Patient Name: SHANIA VALERIO Page [id number] at 1923 All edits/amendments must be made on the electronic document DICTATION DATE: 01/05/191921 LOOM FIXER APPRENTICE: ALICIA 01/05/191921 RPT#: [id number] DC DATE:01/05/19 STATUS: DIS IN [facility] [address] [place] [address] END OF REPORT
== END 2019-01-05 11:28 | DRG 220 ==
LOC: D.SDCHOLD 14:00 → D.CVICU 12-29 05:00 → D.SDCHOLD 12-29 07:30 → D.CVICU 12-29 12:15 → D.SDCHOLD 12-29 14:00 → D.CVICU 01-05 11:28
PROVIDERS: Internal Medicine Cardiovascular Disease; ADMIT Thoracic Surgery (Cardiothoracic Vascular Surgery); ATTEND Thoracic Surgery (Cardiothoracic Vascular Surgery)
PROC: 021009W Bypass Coronary Artery, One Artery from Aorta with Autologous Venous Tissue, Open Approach (ICD-10-PCS; 2018-12-29)
PROC: 06BQ0ZZ Excision of Left Saphenous Vein, Open Approach (ICD-10-PCS; 2018-12-29)
PROC: 02580ZZ Destruction of Conduction Mechanism, Open Approach (ICD-10-PCS; 2018-12-29)
PROC: 5A1221Z Performance of Cardiac Output, Continuous (ICD-10-PCS; 2018-12-29)
PROC: B24BZZ4 Ultrasonography of Heart with Aorta, Transesophageal (ICD-10-PCS; 2018-12-29)
PROC: 5A1221Z Performance of Cardiac Output, Continuous (ICD-10-PCS; 2018-12-29)
PROC: 02RF08Z Replacement of Aortic Valve with Zooplastic Tissue, Open Approach (ICD-10-PCS; principal; 2018-12-29 07:30)
PROC: 02UG0JZ Supplement Mitral Valve with Synthetic Substitute, Open Approach (ICD-10-PCS; 2018-12-29 07:30)
PROC: 02BG0ZZ Excision of Mitral Valve, Open Approach (ICD-10-PCS; 2018-12-29 07:30)
PROC: 05HY33Z Insertion of Infusion Device into Upper Vein, Percutaneous Approach (ICD-10-PCS; 2019-01-02)
PROC: 0W9B3ZZ Drainage of Left Pleural Cavity, Percutaneous Approach (ICD-10-PCS; 2019-01-03)
DX: I25.10 Atherosclerotic heart disease of native coronary artery without angina pectoris (principal); J90 Pleural effusion, not elsewhere classified; I48.0 Paroxysmal atrial fibrillation; I34.0 Nonrheumatic mitral (valve) insufficiency; I35.1 Nonrheumatic aortic (valve) insufficiency; I07.1 Rheumatic tricuspid insufficiency; I10 Essential (primary) hypertension; K21.9 Gastro-esophageal reflux disease without esophagitis; E03.9 Hypothyroidism, unspecified; E87.6 Hypokalemia

== ENCOUNTER → 2018-12-28 14:28 | Outpatient (CLI) | payer MEDICARE, BC ==
[2018-12-15 11:02] VITALS: BMI 30.2
[~2018-12-28 14:28] MED LIST changes: +EDECRIN25 MG PO; +MACRODANTIN100 MG PO; +MERIBIN5 MG PO; +PREVACID15 MG PO; +SORINE80 MG PO
== END | disposition home or self-care (01) ==
LOC: D.CT 14:28
PROVIDERS: ATTEND Thoracic Surgery (Cardiothoracic Vascular Surgery)
DX: R93.1 Abnormal findings on diagnostic imaging of heart and coronary circulation (principal)

== ENCOUNTER 2019-01-05 12:39 | Inpatient (IN) | payer MEDICARE, BC ==
[~2019-01-05 12:39] MED LIST changes: +AMIODARONE HCL200 MG PO; +ELIQUIS5 MG PO; +FLORAJEN3 CAPS460 MG PO; +K-DUR20 MEQ PO; +LASIX40 MG PO; +NYSTATIN1 PWD TOPICAL; +PERCOCET 5-3251 TAB PO; +Senokot-S Tablet PO
[2019-01-05 14:51] VITALS: BMI 32.2
--- NOTE | 2019-01-05 14:58 | NUR ---
PATIENT ADMITTED TO REHAB FROM ACUTE FLOOR. DR. REINA IS HER PCP. DME AT HOME IS A WALKER, CANE AND SHOWER CHAIR. DISCHARGE PLANS ARE FOR HER TO RETURN HOME WITH HER SPOUSE. WILL CONTINUE TO FOLLOW WITH PATIENT
[2019-01-05 15:04] VITALS: BP 133/70; BMI 24.9
--- NOTE | 2019-01-05 19:35 | NUR ---
PT IS RESTING IN BED WITH EYES OPEN. ALERT AND ORIENTED X 3. DENIES ANY DISCOMFORT AT THIS TIME. PT STATES SHE REMEMBERS ME. INCISIONS TO CHEST ABD. AND LEFT THIGH ARE CDI. NO DRAINAGE NOTED. TELEMETRY UNIT IS ON AND INTACT. O2 IS ON @ 2LPM PER NC. NO SOB NOTED. SR'S ARE UP X 2 IN BED. CALL LIGHT AND BEDSIDE TABLE ARE WITHIN EASY REACH.
[2019-01-05 20:00] VITALS: BP 123/42
--- NOTE | 2019-01-05 22:02 | NUR ---
PT VOICED COMPLAINT OF INCISIONAL PAIN LEVEL OF 5. MEDICATED PER MAR. NO FURTHER NEEDS VOICED.
--- NOTE | 2019-01-06 00:48 | NUR ---
RESTING IN BED WITH EYES CLOSED AND RESPIRATIONS UNLABORED. NO DISTRESS NOTED. CALL LIGHT IN REACH.
--- NOTE | 2019-01-06 01:29 | NUR ---
PT UP IN BATHROOM WITH SERVICE ENGINEER. NO ACUTE DISTRESS NOTED.
[2019-01-06 05:08] LABS: BASOPHILS 0 % (0-2); EOSINOPHILS 0.1 % (0-7); HEMOGLOBIN 9.3 g/dL (12-16); IMMATURE GRANULOCYTES 0.7 % (0-5); LYMPHOCYTES 14.9 % (15-50); MCHC 32.1 g/dL (31.0-37.0); MCV 84.1 fL (80.0-100.0); MEAN PLATELET VOLUME 9.5 fL (7.4-10.4); NEUTROPHILS 73.3 % (40-80); PLATELET COUNT 159 10x3/uL (130-400); RBC 3.45 10x6/uL (4.00-5.40); RDW 15.1 % (11.5-14.5); WBC 6.7 10x3/uL (4.8-10.8)
--- NOTE | 2019-01-06 05:13 | NUR ---
PT ASSISTED TO THE BATHROOM WITH MIN ASSIST.
[2019-01-06 05:22] LABS: CALC OSMOLALITY 271 mosm/kg (275-300); CALCIUM 8.9 mg/dL (8.5-10.1); CARBON DIOXIDE 28.1 mmol/L (21.0-32.0); CHLORIDE - SERUM 100 mmol/L (98-107); CREATININE - SERUM 0.8 mg/dL (0.6-1.3); GLUCOSE 112 mg/dL (74-106); POTASSIUM - SERUM 4.8 mmol/L (3.5-5.1); SODIUM 135 mmol/L (136-145); UREA NITROGEN 15 mg/dL (7-18); eGFR NON AFRICAN AMERICAN 75 mL/min (90-120)
[2019-01-06 08:00] VITALS: BP 124/75
--- NOTE | 2019-01-06 08:00 | NUR ---
SHIFT ASSMT COMPLETED.SITTING UP IN RECLINER CHAIR.INCISIONS INTACT.HEALING WELL.BREAKFAST GIVEN.CL IN REACH.
--- NOTE | 2019-01-06 10:00 | NUR ---
HAS HAD X2 LOOSE STOOLS.LOMOTIL GIVEN.
--- NOTE | 2019-01-06 12:00 | NUR ---
EATING LUNCH.FAMILY VISITING.
--- NOTE | 2019-01-06 19:11 | NUR ---
PT IS RESTING IN RECLINER IN HER ROOM WITH EYES CLOSED. RESPS ARE EVEN AND UNLABORED. NO ACUTE DISTRESS NOTED. PT AWOKE AND REQUESTED TO GO TO THE BATHROOM. ASSISTED INTO BR WITH MOD ASSIST TO STAND FROM RECLINER, SBA FOR TOILETING, AND MOD ASSIST TO LIFT LEGS INTO BED. PT IS ALERT AND ORIENTED X 3. DENIES ACUTE PAIN OR DISCOMFORT AT THIS TIME. INCISIONS ARE ALL HEALING WELL. O2 IS ON @ 2LPM PER NC. PT DID BECOME MILDLY SOB WITH EXHERTION, BUT IT SETTLED DOWN QUICKLY WHEN SHE WAS AT REST. SR'S ARE UP X 2 IN BED. CALL LIGHT AND BEDSIDE TABLE ARE WITHIN EASY REACH.
[2019-01-06 20:41] VITALS: BP 119/71
--- NOTE | 2019-01-06 21:09 | NUR ---
PATIENT RESTING IN BED WATCHING TV. WILL CONTINUE TO MONITOR.
--- NOTE | 2019-01-06 22:04 | NUR ---
PT ASSISTED TO THE BATHROOM WITH MIN ASSIST.
--- NOTE | 2019-01-07 00:29 | NUR ---
RESTING IN BED WITH EYES CLOSED.
--- NOTE | 2019-01-07 03:30 | NUR ---
RESTING IN BED WITH EYES CLOSED.
--- NOTE | 2019-01-07 06:17 | NUR ---
PT ASSISTED UP TO THE BATHROOM. VOIDED WITHOUT DIFFICULTY. PT OPTED TO SIT UP IN RECLINER AFTERWARDS. SPOUSE IS IN ROOM VISITING.
[2019-01-07 08:00] VITALS: BP 117/63
--- NOTE | 2019-01-07 08:00 | NUR ---
SHIFT ASSMT COMPLETED.CL IN REACH.
--- NOTE | 2019-01-07 19:51 | NUR ---
PT IS RESTING IN BED WITH EYES OPEN. ALERT AND ORIENTED X 3. PT VOICED COMPLAINT OF GENERAL PAIN LEVEL OF 4 AT THIS TIME. SHE STATED SHE WANTED A PAIN PILL WITH HER NIGHT TIME MEDICINES. INCISIONS TO STERNUM, ABD, AND LEFT THIGH ARE CDI, AND HEALING WELL. TELEMETRY UNIT IS ON AND INTACT. O2 IS ON @ 2LPM PER NC. NO SOB NOTED. SR'S ARE UP X 2 IN BED. CALL LIGHT AND BEDSIDE TABLE ARE WITHIN EASY REACH.
[2019-01-07 20:00] VITALS: BP 127/76
--- NOTE | 2019-01-07 22:08 | NUR ---
PATIENT RESTING QUIETLY WITH EYES CLOSED. RESPIRATIONS EVEN. NO S/S OF DISTRESS. CALL LIGHT IN REACH.
--- NOTE | 2019-01-08 02:00 | NUR ---
RESTING QUIETLY IN BED WITH EYES CLOSED. RESPS ARE EVEN AND UNLABORED. NO ACUTE DISTRESS NOTED.
--- NOTE | 2019-01-08 04:29 | NUR ---
PT ASSISTED TO THE BATHROOM WITH MOD ASSIST FOR TRANSFERS. NO FURTHER NEEDS VOICED.
[2019-01-08 07:45] LABS: CALC OSMOLALITY 276 mosm/kg (275-300); CALCIUM 9.3 mg/dL (8.5-10.1); CARBON DIOXIDE 29.7 mmol/L (21.0-32.0); CHLORIDE - SERUM 100 mmol/L (98-107); CREATININE - SERUM 0.8 mg/dL (0.6-1.3); GLUCOSE 109 mg/dL (74-106); POTASSIUM - SERUM 5.1 mmol/L (3.5-5.1); SODIUM 137 mmol/L (136-145); UREA NITROGEN 17 mg/dL (7-18); eGFR NON AFRICAN AMERICAN 75 mL/min (90-120)
[2019-01-08 08:02] LABS: BASOPHILS 0 % (0-2); EOSINOPHILS 0.1 % (0-7); HEMOGLOBIN 9.7 g/dL (12-16); IMMATURE GRANULOCYTES 0.6 % (0-5); LYMPHOCYTES 14.2 % (15-50); MCH 27.8 pg (26.0-34.0); MCHC 32.3 g/dL (31.0-37.0); MEAN PLATELET VOLUME 9.5 fL (7.4-10.4); MONOCYTES 8.8 % (2-11); NEUTROPHILS 76.3 % (40-80); RBC 3.49 10x6/uL (4.00-5.40); RDW 15.4 % (11.5-14.5); WBC 6.8 10x3/uL (4.8-10.8)
[2019-01-08 08:07] LABS: PLATELET COUNT 201 10x3/uL (130-400)
--- NOTE | 2019-01-08 08:29 | NUR ---
SITTING UP IN RECLINER FOR BREAKFAST. WEARING OXYGEN. GETS HERSELF UP TO WALKER. IN ROOM WITH PT. CALL LIGHT IN REACH
[2019-01-08 08:33] VITALS: BP 122/60
--- NOTE | 2019-01-08 09:34 | NUR ---
Nutrition follow up Regular cardiac diet with 67% average po intake Pt reports she is getting plenty to eat and ordering per preferences Encouraged good po intake to help with muscle recovery Pt has no questions about nutrition RD following
--- NOTE | 2019-01-08 12:55 | NUR ---
SITTING UP IN RECLINDER IN ROOM EATING LUNCH. USES WALKER FOR AMBULATION ASST. INCISIONS ARE INTACT WITH NO DRAINAGE NOTED. STILL WEARING CARRIE HOSE TO BLE FROM KNEES TO TOES. SATS STAYING IN HIGH 90'S SO NOT WEARING OXYGEN AT PRESENT. HAS TO VOID ABOUT EVERY HOUR DUE TO DIURETICS. IN ROOM WITH HER. CALL LIGHT IN REACH
--- NOTE | 2019-01-08 17:16 | NUR ---
SITTING UP STRAIGHT IN RECLINER IN ROOM. DECLILNED TO HAVE LEGS ELEVATED. CARRIE IN PLACE TO BLE FROM KNEES TO TOES. NO WEARING OXYGEN. SATS IN HIGH 90'S. PAIN CONTROLLED. USES WALKER. CALL LIGHT IN REACH
--- NOTE | 2019-01-08 20:00 | NUR ---
PT RESTING IN BED WITH EYES OPEN. ALERT AND ORIENTED X 3. DENIES ACUTE DISCOMFORT AT THIS TIME. ASSISTED TO THE BATHROOM WITH MOD ASSIST ONLY TO STAND. SBA FOR ALL OTHER TASKS. ALL INCISIONS ARE HEALING WELL. SR'S ARE UP X 2 IN BED. CALL LIGHT AND BEDSIDE TABLE ARE WITHIN EASY REACH.
--- NOTE | 2019-01-09 00:01 | NUR ---
RESTING IN BED WITH EYES CLOSED.
--- NOTE | 2019-01-09 02:09 | NUR ---
RESTING IN BED WITH EYES CLOSED.
--- NOTE | 2019-01-09 06:00 | NUR ---
PT RESTING IN BED VISITING WITH HER . NO ACUTE DISTRESS NOTED.
[2019-01-09 08:00] VITALS: BP 130/71
--- NOTE | 2019-01-09 13:14 | NUR ---
SITTING IN ROOM IN RECLINER. JUST LEFT. DENIES NEEDS. STILL USING WALKER FOR AMBULATION ASST. TEDS IN PLACE. INCISIONS HAVE NO S/S INFECTION. CALL LIGHT IN REACH
--- NOTE | 2019-01-09 18:42 | NUR ---
IN BED. CALL LIGHT IN REACH
[2019-01-09 21:09] VITALS: BP 140/60
--- NOTE | 2019-01-09 21:50 | NUR ---
ASSISTED PT TO BATHROOM AND BACK TO BED.
--- NOTE | 2019-01-10 00:14 | NUR ---
PT REST IN BED, EYE CLOSE, CALL LIGHT IN REACH.
--- NOTE | 2019-01-10 04:13 | NUR ---
REST QUIETLY IN BED, CALL LIGHT IN REACH.
[2019-01-10 07:28] LABS: BASOPHILS 0.1 % (0-2); EOSINOPHILS 0 % (0-7); HEMATOCRIT 29.4 % (36.0-48.0); HEMOGLOBIN 9.3 g/dL (12-16); IMMATURE GRANULOCYTES 0.6 % (0-5); LYMPHOCYTES 13.5 % (15-50); MCH 26.6 pg (26.0-34.0); MCHC 31.6 g/dL (31.0-37.0); MEAN PLATELET VOLUME 9.1 fL (7.4-10.4); MONOCYTES 9.1 % (2-11); NEUTROPHILS 76.7 % (40-80); PLATELET COUNT 192 10x3/uL (130-400); RDW 15.2 % (11.5-14.5); WBC 6.7 10x3/uL (4.8-10.8)
[2019-01-10 07:45] LABS: ANION GAP 12.3 mmol/L (8-16); CALCIUM 8.8 mg/dL (8.5-10.1); CARBON DIOXIDE 28.6 mmol/L (21.0-32.0); CREATININE - SERUM 1.1 mg/dL (0.6-1.3); POTASSIUM - SERUM 4.9 mmol/L (3.5-5.1)
--- NOTE | 2019-01-10 08:00 | NUR ---
SHIFT ASSMT COMPLETED.
[2019-01-10 08:33] VITALS: BP 138/81
--- NOTE | 2019-01-10 12:55 | RHP ---
PATIENT: SHANIA VALERIO MEDICAL RECORD: [id number] ACCOUNT: [id number] LOCATION:[facility] : [birth year] ADMISSION DATE: 01/05/19 REHABILITATION HISTORY AND PHYSICAL EXAMINATION POST ADMISSION PHYSICIAN EXAMINATION DATE OF ADMISSION: 01/05/2019 ADMITTING DIAGNOSIS: Critical illness myopathy. HISTORY OF PRESENT ILLNESS: The patient is admitted to inpatient rehab with critical illness myopathy. She is a 73-year-old female patient who was admitted after a cardiac workup that showed that she needed aortic valve replacement, mitral valve repair and coronary artery bypass grafting. She has got a past medical history of aortic stenosis, aortic insufficiency, mitral valve regurgitation, coronary artery disease. She has got paroxysmal atrial fib, severe arthritis, degenerative joint disease, hypothyroidism, hypertension. She is currently on telemetry and having some bouts of uncontrolled AFib at times. X-ray of her chest showed bilateral pleural effusions and also collapsed lung. A thoracentesis was done on 01/03/2019 with 400 cc removed. She requires close monitoring of her lab values for worsening blood loss anemia. She has received 2 units of fresh frozen plasma, 3 units packed red blood cells and a unit of platelets. Postop, she has been complicated by acute pain, acute blood loss anemia, hypoxia, pulmonary edema, bilateral pleural effusions, uncontrolled AFib, deconditioning, debility, impaired mobility and proximal muscle weakness. She is a fall risk and self-care deficits. These are all barriers to her discharge home. Previously, she was at home with her , was still driving. She is moderately independent with use of rolling walker for mobility and independent with ADLs. Currently, she is mod-to-max assist for ADLs and mobility. She and her family planned for her to return home as close to her prior level of functioning as possible. COMORBIDITIES: Include acute atherosclerosis of coronary artery, acute aortic regurgitation, acute mitral regurgitation, coronary artery disease, hypertension, bilateral pleural effusions, chronic paroxysmal atrial fib, chronic hypothyroidism, pulmonary edema, deconditioning, weakness, acute hypoxia requiring supplemental O2, acute blood loss anemia, status post ultrasound-guided thoracentesis. PAST MEDICAL HISTORY: Significant for weakness, allergies, sinus problems, hypertension, tachycardia, AFib, mitral valve prolapse, shortness of breath, gastroesophageal reflux disease, diverticulitis, constipation, arthritis, menopause, anxiety and history of tobacco use. PAST SURGICAL HISTORY: Includes gallbladder surgery, cataract surgery, bilateral total knees. She has had a thyroidectomy, bilateral cataracts removed. She has had one stent to her right leg. She has had stents to her heart and also a stent to her left leg. ALLERGIES: AMOXICILLIN, CODEINE, SULFA AND ADHESIVE TAPE. CURRENT MEDICATIONS: Include potassium ER, she is on 10 mEq daily. She is on furosemide 20 mg daily. She is on Floranex 460 mg daily, furosemide 40 mg daily, Sussy 180 mg daily, Protonix 40 mg daily, vitamin D 2000 units daily, aspirin chewable 81 mg daily, Synthroid 125 mcg daily, Senna 2 tabs at bedtime, HISTORY AND PHYSICAL [id number] SHANIA VALERIO Pravachol 10 mg at bedtime, nitrofurantoin 100 mg daily. She is on Colace 200 mg b.i.d., Eliquis 5 mg b.i.d., amiodarone 200 mg b.i.d., tramadol 50 mg every 6 hours p.r.n., Percocet 5/325 one tab every 6 hours p.r.n. She is on potassium 20 mEq b.i.d., metoprolol 12.5 mg b.i.d. She is on diphenhydramine every 4 hours p.r.n. itching, MiraLax 17 grams in 8 ounces of water daily and on nystatin powder to apply topically as needed. HABITS: Does have a history of tobacco use. FAMILY HISTORY: Noncontributory. SOCIAL HISTORY: The patient hopes to return back home and get back to her prior level of functioning. REVIEW OF SYSTEMS: GENERAL: Does complain of some weakness and fatigue. HEENT: Denies cold, cough, or congestion. CARDIOVASCULAR: Denies any chest pain. PHYSICAL EXAMINATION: VITAL SIGNS: Stable, afebrile. GENERAL: She is a well-developed female, in no acute distress upon exam. HEENT: Normocephalic and atraumatic. Mucosa moist. NECK: Supple. No lymphadenopathy. LUNGS: Clear in upper cisneros. HEART: Irregular rate and rhythm. She is a little bit tachycardic. ABDOMEN: Benign. EXTREMITIES: No clubbing, cyanosis or edema. NEUROLOGIC: She does have noted weakness. LABORATORY DATA: White count 6.7, H&H of 9.3 and 29.0 and platelet count is noted to be 159. Her sodium is 135, potassium 4.8, BUN and creatinine of 15 and 0.8, and blood sugar is noted to be 112. 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 The patient has potential to make improvement. We instituted the following multidisciplinary therapies include, but not limited to physical, occupational, respiratory, speech, nutritional services, prosthetics and orthotics. Given her complex medical conditions and risks for more complications, rehabilitation services cannot be provided at a low level of care such as skilled nurse facility. PLAN: 1. Admit to [facility] for intensive inpatient therapy to include the following disciplines: A. Physical therapy to improve gait, all transfer skills and bed mobility to a modified independent level. B. Occupational therapy to a modified independent level. C. Case management to assist with discharge planning and placement options. D. Nutrition to assist with nutritional needs. E. Rehabilitation nursing to assist in monitoring the patient's underlying medical conditions and to assist with any type of bowel or bladder management. 2. The patient's current medication and medical care will be continued. 3. The patient will be placed on standard fall precautions. HISTORY AND PHYSICAL [id number] SHANIA VALERIO 4. The patient's estimated length of stay is approximately 7-10 days. 5. We will discuss the patient during care team staff meeting this week and probably going to see again on Tuesday a.m. TRANSINT:[id number] Voice Confirmation ID: [id number] DOCUMENT ID: [id number] LUX notes whether there has been none or any medical/functional change since admission: - No change since prescreen. LUX attests patient continues to be appropriate for IRF: - Continues to be appropriate. MANI MIXON MD at 1255 CC: [id number] DICTATION DATE: 01/06/19831 FORCE DISPATCHER: 01/06/19928 ADM IN [place] [id number] [place] [address]
--- NOTE | 2019-01-10 16:00 | NUR ---
RESTING IN CHAIR.CL IN REACH.
[2019-01-10 19:00] VITALS: BP 110/63
--- NOTE | 2019-01-10 19:16 | NUR ---
GREETED PATIENT AND INTRODUCED MYSELF. PATIENT IS LAYING IN BED IN SUPINE POSITION. DENIES ANY FURTHER NEEDS AT THIS TIME. CALL LIGHT IN REACH.
--- NOTE | 2019-01-11 01:18 | NUR ---
ASSISTED PATIENT TO BATHROOM USING WALKER. PATIENT BACK TO BED AND REPOSITIONED FOR COMFORT. CALL LIGHT IN REACH.
[2019-01-11 08:00] VITALS: BP 123/65
--- NOTE | 2019-01-11 08:00 | NUR ---
shift assmt completed.
--- NOTE | 2019-01-11 16:00 | NUR ---
sitting up in chair.
[2019-01-11 19:00] VITALS: BP 133/77
--- NOTE | 2019-01-11 20:08 | NUR ---
GREETED PATIENT AND ASSISTED PATIENT BACK TO BED FROM BATHROOM. REPOSITIONED FOR COMFORT. DENIES ANY NEEDS AT THIS TIME. CALL LIGHT IN REACH.
--- NOTE | 2019-01-12 03:10 | NUR ---
PATIENT RESTING QUIETLY WITH EYES CLOSED LAYING IN SUPINE POSITION. HOB AT 30 DEGREES. RESPIRATIONS EVEN. NO S/S OF DISTRESS. SR UP X 2. BED IN LOWEST POSITION. CALL LIGHT IN REACH.
[2019-01-12 08:20] VITALS: BP 101/52
[2019-01-12 09:02] LABS: BASOPHILS 0.2 % (0-2); EOSINOPHILS 0.3 % (0-7); HEMATOCRIT 32.5 % (36.0-48.0); HEMOGLOBIN 10.1 g/dL (12-16); IMMATURE GRANULOCYTES 0.8 % (0-5); LYMPHOCYTES 13.9 % (15-50); MCH 26.5 pg (26.0-34.0); MCHC 31.1 g/dL (31.0-37.0); MCV 85.3 fL (80.0-100.0); MEAN PLATELET VOLUME 9.4 fL (7.4-10.4); MONOCYTES 7.4 % (2-11); NEUTROPHILS 77.4 % (40-80); PLATELET COUNT 218 10x3/uL (130-400); RBC 3.81 10x6/uL (4.00-5.40); RDW 15.5 % (11.5-14.5); WBC 6.3 10x3/uL (4.8-10.8)
[2019-01-12 09:09] LABS: CARBON DIOXIDE 30.4 mmol/L (21.0-32.0); CREATININE - SERUM 1.1 mg/dL (0.6-1.3); POTASSIUM - SERUM 4.4 mmol/L (3.5-5.1)
--- NOTE | 2019-01-12 13:06 | NUR ---
SITTING UP IN RECLLINER IN ROOM FINISHING LUNCH. STILL USES WALKER FOR AMBULATION ASST. INCISIONS TO CHEST, ABD, LLE ARE INTACT. CARRIE ON LEGS. CALL LIGHT IN REACH
--- NOTE | 2019-01-12 19:40 | NUR ---
PT IS RESTING IN BED WITH EYES CLOSED. RESPS ARE SHALLOW, EVEN AND UNLABORED. NO ACUTE DISTRESS NOTED. TELEMETRY UNIT IS ON AND INTACT. SR'S ARE UP X 2 IN BED. CALL LIGHT AND BEDSIDE TABLE ARE WITHIN EASY REACH.
[2019-01-12 19:59] VITALS: BP 117/61
--- NOTE | 2019-01-12 21:36 | NUR ---
PT IS RESTING IN BED WATCHING TV. NO ACUTE DISTRESS NOTED.
--- NOTE | 2019-01-13 00:13 | NUR ---
RESTING IN BED WITH EYES CLOSED AND RESPIRAITONS UNLABORED. NO DISTRESS NOTED. CALL LIGHT IN REACH.
--- NOTE | 2019-01-13 03:39 | NUR ---
PT RESTING IN BED WITH EYES CLOSED. NO ACUTE DISTRESS NOTED.
--- NOTE | 2019-01-13 05:58 | NUR ---
PT RESTING IN BED WITH EYES OPEN. VISITING WITH HER . NO NEEDS VOICED.
[2019-01-13 08:51] VITALS: BP 98/40
--- NOTE | 2019-01-13 10:42 | NUR ---
MOD ASST TO STAND FROM SITTING IN RECLINER. SHE CAN WALK WITH WALKER TO BATHROOM AND DO OWN SILVANO CARE AND WALK BACK TO RECLINER. SHE USES CARDIAC PILLOW TO HUG CHEST AND FOLLOWS STERNAL PRECAUTIONS. IN ROOM WITH PT.
--- NOTE | 2019-01-13 15:39 | NUR ---
SITTING UP IN RECLINER IN ROOM. EYES CLOSED. NO S/S DISTRESS. CARRIE TO BLE IN PLACE. NON SKID SOLE SHOES ON FEET. BLE ELEVATED. CALL LIGHT IN REACH
--- NOTE | 2019-01-13 21:34 | NUR ---
PATIENT SLEEPING AT THIS TIME.
--- NOTE | 2019-01-13 23:15 | NUR ---
PT IS RESTING IN BED WITH EYES OPEN. ALERT AND ORIENTED X 3. DENIES ACUTE DISCOMFORT AT THIS TIME. ASSISTED TO THE BATHROOM WITH MOD ASSIST FOR TRANSFERS AND SBA FOR TOILETING. INCISIONS TO CHEST, ABD, AND LEFT THIGH ARE HEALING WELL. NO DRAINAGE NOTED. SR'S ARE UP X 2 IN BED. CALL LIGHT AND BEDSIDE TABLE ARE WITHIN EASY REACH.
--- NOTE | 2019-01-14 02:20 | NUR ---
RESTING IN BED WITH EYES CLOSED.
--- NOTE | 2019-01-14 06:04 | NUR ---
PT ASSISTED UP TO BATHROOM, AND THEN INTO HER RECLINER. VISITING WITH SPOUSE.
[2019-01-14 07:40] VITALS: BP 102/56
--- NOTE | 2019-01-14 11:45 | NUR ---
SITTING UP IN RECLINER VISITING WITH FAMILY. DENIES NEEDS.
--- NOTE | 2019-01-14 16:22 | NUR ---
SITTING UP IN CHAIR WATCHING TV. HAS BEEN UP IN CHAIR MOST OF DAY. WEARING KNEE HIGH TEDS. USES CARDIAC PILLOW WHEN GETTING UP AND IS STILL ON STERNAL PRECAUTIONS. CALL LIGHT IN REACH
[2019-01-14 19:55] VITALS: BP 114/63
--- NOTE | 2019-01-14 20:00 | NUR ---
PT IS RESTING IN BED WITH EYES OPEN. ALERT AND ORIENTED X 3. DENIES ACUTE DISCOMFORT AT THIS TIME. VSS. INCISIONS TO CHEST, ABD AND LEFT THIGH ARE CDI, AND HEALING WELL. TELEMETRY UNIT IS ON AND INTACT. SR'S ARE UP X 2 IN BED. CALL LIGHT AND BEDSIDE TABLE ARE WITHIN EASY REACH.
--- NOTE | 2019-01-14 21:38 | NUR ---
PATIENT WATCHING TV AT THIS TIME. NO COMPLAINTS. GAURI CONTINUE TO MONITOR.
--- NOTE | 2019-01-15 02:45 | NUR ---
PT ASSISTED TO THE BATHROOM WITH CGA. NO FURTHER NEEDS VOICED.
[2019-01-15 06:30] LABS: BASOPHILS 0 % (0-2); EOSINOPHILS 0.3 % (0-7); HEMATOCRIT 31.9 % (36.0-48.0); HEMOGLOBIN 9.8 g/dL (12-16); IMMATURE GRANULOCYTES 0.3 % (0-5); LYMPHOCYTES 17.6 % (15-50); MCH 26.3 pg (26.0-34.0); MCHC 30.7 g/dL (31.0-37.0); MCV 85.5 fL (80.0-100.0); MEAN PLATELET VOLUME 9.3 fL (7.4-10.4); MONOCYTES 11.2 % (2-11); NEUTROPHILS 70.6 % (40-80); PLATELET COUNT 200 10x3/uL (130-400); RBC 3.73 10x6/uL (4.00-5.40); RDW 15.8 % (11.5-14.5); WBC 6.1 10x3/uL (4.8-10.8)
[2019-01-15 06:44] LABS: ANION GAP 11.3 mmol/L (8-16); CALCIUM 9.3 mg/dL (8.5-10.1); CARBON DIOXIDE 29.2 mmol/L (21.0-32.0); POTASSIUM - SERUM 4.5 mmol/L (3.5-5.1)
--- NOTE | 2019-01-15 08:00 | NUR ---
SITTING UP IN RECLINER FOR BREAKFAST. DENIES NEEDS. CALL LIGHT IN REACH. IN ROOM WITH PT.
[2019-01-15 08:15] VITALS: BP 102/57
--- NOTE | 2019-01-15 08:15 | NUR ---
SITTING UP IN RECLINER IN ROOM FOR BREAKFAST. IN ROOM WITH HER. CALL LIGHT IN REACH
--- NOTE | 2019-01-15 08:15 | NUR ---
SITTING UP FOR BREAKFAST. IN ROOM WITH HER. CARRIE LINDSAY IN PLACE. CALL LIGHT IN REACH. DENIES NEEDS OR C/O
--- NOTE | 2019-01-15 10:34 | NUR ---
Nutrition follow up Regular Cardiac diet with 50-100% of meals Pt reports good appetite and no nutritional requests Pt is low nutrition risk RD following
--- NOTE | 2019-01-15 11:50 | NUR ---
SITTING IN RECLINER IN ROOM WATCHING TV. IN ROOM WITH HER. SHE IS WEARING TEDS TO BLE FROM KNEES DOWN. SHE USES WALKER FOR AMBULATION ASST AND CARDIAC PILLOW TO HOLD TO CHEST WHEN GETTING UP. SHE REMAINS ON STERNAL PRECAUTIONS. INCISIONS TO CHEST, ABD AND THIGH ARE INTACT WITH NO S/S INFECTION.
--- NOTE | 2019-01-15 12:47 | NUR ---
IN RECLINER IN ROOM WATCHING TV. DENIES NEEDS. BLE ELEVATED IN RECLINER
--- NOTE | 2019-01-15 17:11 | NUR ---
SITTING UP IN RECLINER IN ROOM. DENIES NEEDS OR C/O. CALL LIGHT IN REACH
[2019-01-15 19:00] VITALS: BP 108/81
--- NOTE | 2019-01-15 19:28 | NUR ---
PT IS RESTING IN BED WITH EYES OPEN. ALERT AND ORIENTED X 3. DENIES ACUTE PAIN OR DISCOMFORT. NO NEEDS VOICED. ALL INCISIONS ARE CDI, AND HEALING WELL. SR'S ARE UP X 2 IN BED. CALL LIGHT AND BEDSIDE TABLE ARE WITHIN EASY REACH.
--- NOTE | 2019-01-15 21:43 | NUR ---
PT RESTING IN BED WATCHING TV. NO NEEDS VOICED.
--- NOTE | 2019-01-16 00:01 | NUR ---
PT RESTING IN BED WITH EYES CLOSED.
--- NOTE | 2019-01-16 02:28 | NUR ---
RESTING IN BED WITH RESPIRARTIONS UNLABORED. NO DISTRESS NOTED. CALL LIGHT IN REACH.
--- NOTE | 2019-01-16 05:59 | NUR ---
PT RESTING IN BED VISITING WITH HER . NO NEEDS VOICED.
[2019-01-16 08:00] VITALS: BP 109/59
--- NOTE | 2019-01-16 08:00 | NUR ---
SHIFT ASSMT COMPLETED.DENIES NEEDS.BREAKFAST TRAY GIVEN.CL IN REACH.SITTING UP IN CHAIR.
--- NOTE | 2019-01-16 12:00 | NUR ---
SITTING UP IN CHAIR.GOLDEN THERAPY.DENIES NEEDS.
[2019-01-16 19:00] VITALS: BP 126/67
--- NOTE | 2019-01-16 19:25 | NUR ---
PT LYING IN BED WATCHING TV. CALL LIGHT IN REACH. DENIES NEEDS AT THIS TIME. BED IN LOW. SIDE RAILS X2. A/O X4. LUNGS CLEAR. BOWEL ACTIVE X4. RESP EVEN AND UNLABORED. WCTM
--- NOTE | 2019-01-17 00:10 | NUR ---
PT RESTING QUIETLY. CALL LIGHT IN REACH. NO DISTRESS NOTED. RESP EVEN AND UNLABORED. CPOC
--- NOTE | 2019-01-17 03:00 | NUR ---
PT UP TO THE BATHROOM. DENIES NEEDS AT THIS TIME. WCTM
[2019-01-17 07:04] LABS: BASOPHILS 0 % (0-2); EOSINOPHILS 0.2 % (0-7); HEMATOCRIT 28.8 % (36.0-48.0); IMMATURE GRANULOCYTES 0.2 % (0-5); MCH 26.5 pg (26.0-34.0); MCHC 31.3 g/dL (31.0-37.0); MEAN PLATELET VOLUME 9.3 fL (7.4-10.4); MONOCYTES 10.9 % (2-11); NEUTROPHILS 68.7 % (40-80); RBC 3.39 10x6/uL (4.00-5.40); WBC 4.3 10x3/uL (4.8-10.8)
[2019-01-17 07:29] LABS: ANION GAP 10.3 mmol/L (8-16); CARBON DIOXIDE 29.1 mmol/L (21.0-32.0); CREATININE - SERUM 1.2 mg/dL (0.6-1.3); POTASSIUM - SERUM 4.4 mmol/L (3.5-5.1)
[2019-01-17 07:39] LABS: PLATELET COUNT 154 10x3/uL (130-400)
--- NOTE | 2019-01-17 08:00 | NUR ---
SHIFT ASSMT COMPLETED.CL IN REACH.
[2019-01-17 08:46] VITALS: BP 119/69
[2019-01-17] MEDS ORDERED: CALMOSEPTINE OI71 GM TOPICAL (11:39)
[2019-01-17] MEDS ORDERED: LOMOTIL 2.5-0.1 EAC1 PO (11:39)
--- NOTE | 2019-01-17 12:00 | NUR ---
EATING LUNCH.DENIES NEEDS.
--- NOTE | 2019-01-17 19:25 | NUR ---
PT SITTING UP IN BED WATCHING TV. CALL LIGHT IN REACH. RESP EVEN AND UNLABORED. BED IN LOW. SIDE RAILS X2. LUNGS CLEAR. BOWEL ACTIVE X4. ASSESSMENT COMPLETED. A/O X4. WCTM
[2019-01-17 20:29] VITALS: BP 128/64
--- NOTE | 2019-01-18 00:15 | NUR ---
PT RESTING QUIETLY. CALL LIGHT IN REACH. NO DISTRESS NOTICED. WCTM
--- NOTE | 2019-01-18 03:00 | NUR ---
PT RESTING QUIETLY. CALL LIGHT IN REACH. NO DISTRESS NOTED. RESP EVEN AND UNLABORED. WCTM
--- NOTE | 2019-01-18 07:30 | NUR ---
SITTING UP IN RECLINER. STILL USING STERNAL PRECAUTIONS WHEN GETTING UP. DENIES PAIN. INCISIONS TO CHEST, ABD AND UPPER LEFT THIGH ARE INTACT WITH NO S/S INFECTION. ANXIOUS TO GO HOME. IN ROOM WITH PT.
[2019-01-18 08:12] VITALS: BP 110/67
--- NOTE | 2019-01-18 09:15 | NUR ---
PATIENT DISCHARGING HOME TODAY WITH FAMILY. [facility] WILL PROVIDE THEREAPY AT HOME. [facility] WILL DELIVER A ROLLING WALKER TO PATIENT. DR. REINA 01/31/19 @ 11:40, DR. PERES 02/07/19 @ 1:30. PATIENT CHOICE FORM AND IMFM FORM SIGNED, COPY GIVEN TO PATIENT AND FILED IN CHART. DISCHARGE INSTRUCTIONS WITH [facility] DATA FAXED TO [facility]CP[facility] AND REVIEWED WITH PATIENT.
--- NOTE | 2019-01-18 11:20 | NUR ---
DC HOME WITH ALL PERSONAL BELONGINGS. MEDS CALLED INTO PHARMACY AFTER REVIEWING WITH PT. LEFT FLOOR IN WC. DENIES QUESTIONS.
== END 2019-01-18 10:00 | disposition home health service (06) | DRG 92 ==
LOC: D.REHAB 12:39 → D.SDCHOLD 12:39 → D.REHAB 12:40
PROVIDERS: ADMIT Emergency Medicine; ATTEND Emergency Medicine
DX: G72.81 Critical illness myopathy (principal); J90 Pleural effusion, not elsewhere classified; J81.1 Chronic pulmonary edema; D62 Acute posthemorrhagic anemia; I25.10 Atherosclerotic heart disease of native coronary artery without angina pectoris; I08.0 Rheumatic disorders of both mitral and aortic valves; I48.2 Chronic atrial fibrillation; E03.9 Hypothyroidism, unspecified; R53.1 Weakness; R09.02 Hypoxemia; I10 Essential (primary) hypertension; I51.7 Cardiomegaly; I48.91 Unspecified atrial fibrillation

== ENCOUNTER → 2019-02-14 11:37 | Outpatient (CLI) | payer MEDICARE, BC ==
[~2019-02-14 11:37] MED LIST changes: +CALMOSEPTINE OI71 GM TOPICAL; +LOMOTIL 2.5-0.1 EAC1 PO
== END | disposition home or self-care (01) ==
LOC: D.RAD 11:15 → D.CN 11:30 → D.RAD 11:37
PROVIDERS: ATTEND Thoracic Surgery (Cardiothoracic Vascular Surgery)
DX: D64.9 Anemia, unspecified (principal); J91.8 Pleural effusion in other conditions classified elsewhere; I48.91 Unspecified atrial fibrillation

== ENCOUNTER → 2019-05-16 13:27 | Outpatient (CLI) | payer MEDICARE, BC | END | disposition home or self-care (01) | LOC: D.CN 05-14 11:00 → D.RT 13:27 → D.CN 13:30 | PROVIDERS: ATTEND Thoracic Surgery (Cardiothoracic Vascular Surgery) | DX: I05.9 Rheumatic mitral valve disease, unspecified (principal) ==

== ENCOUNTER → 2019-05-21 11:54 | Outpatient (CLI) | payer MEDICARE, BC ==
[2019-05-21 12:47] LABS: INR 1.97 (0.85-1.17); PROTIME 21.8 SECONDS (11.6-15.0)
== END | disposition home or self-care (01) ==
LOC: D.LAB 11:54
PROVIDERS: ATTEND Thoracic Surgery (Cardiothoracic Vascular Surgery)
DX: I48.91 Unspecified atrial fibrillation (principal); Z79.01 Long term (current) use of anticoagulants

== ENCOUNTER → 2019-05-28 09:18 | Outpatient (CLI) | payer MEDICARE, BC ==
[2019-05-28 10:04] LABS: INR 4.25 (0.85-1.17)
== END | disposition home or self-care (01) ==
LOC: D.LAB 09:18
PROVIDERS: ATTEND Thoracic Surgery (Cardiothoracic Vascular Surgery)
DX: I48.91 Unspecified atrial fibrillation (principal); Z79.01 Long term (current) use of anticoagulants

== ENCOUNTER → 2019-06-04 08:53 | Outpatient (CLI) | payer MEDICARE, BC ==
[2019-06-04 09:47] LABS: INR 4.09 (0.85-1.17); PROTIME 38.8 SECONDS (11.6-15.0)
== END | disposition home or self-care (01) ==
LOC: D.LAB 08:53
PROVIDERS: ATTEND Thoracic Surgery (Cardiothoracic Vascular Surgery)
DX: I48.91 Unspecified atrial fibrillation (principal)

== ENCOUNTER → 2019-09-21 10:00 | Outpatient (CLI) | payer MEDICARE, BC | END | disposition home or self-care (01) | LOC: D.ECHO 09-19 09:00 → D.MAMMO 10:00 → D.ECHO 11:00 → D.MAMMO 11:00 | PROVIDERS: ATTEND Thoracic Surgery (Cardiothoracic Vascular Surgery) | DX: Z12.31 Encounter for screening mammogram for malignant neoplasm of breast (principal) ==

== ENCOUNTER → 2019-09-21 10:51 | Outpatient (CLI) | payer MEDICARE, BC ==
--- NOTE | ~2019-09-21 | EC ---
PATIENT:SHANIA VALERIO DATE OF SERVICE: 09/21/19 SEX: F MEDICAL RECORD: [id number] DATE OF : [birth year] LOCATION:D[facility] AGE OF PATIENT: 74 ADMISSION DATE: 09/21/19 REFERRING PHYSICIAN: INTERPRETING PHYSICIAN: FRAN BYRD MD ECHOCARDIOGRAM REPORT ECHO CHARGES 4 ECHO COMPLETE Date: 09/21/19 CLINICAL DIAGNOSIS: AFIB ECHOCARDIOGRAPHIC MEASUREMENTS (adult normal given) AC root (d.<3.7cm) 3.2 cm LV Septum d (<1.2 cm> 1.1 cm Valve Excursion 1.4 cm LV Septum (systole) 1.3 cm Left Atria (s.<4.0cm> 4.2 cm LVPW d(<1.2cm) 1.3 cm RV (d.<2.3cm) 2.9 cm LVPW (sytole) 1.4 cm LV diastole(<5.6CM) 5.1 cm MV E-F(>70mm/sec) cm LV systole 4.4 cm LVOT Diameter 1.7 cm MV exc.(>10mm) cm Est.ejection fraction (50-75%) % DOPPLER: LVIT cm/sec A cm/sec E 141 cm/sec LA cm/sec RVSP 29.9 mmHg LVOT 141 cm/sec AOP1/2T m/s Asc. Ao cm/sec RVOT 57 cm/sec RA cm/sec PA 76 cm/sec AV Gradient Peak mmHg AV Mean mmHg AV Area cm MV Gradient Peak 12.5 mmHg MV Mean 5.6 mmHg MV Area cm COMMENTS: Center Maker Hand: Dung MARY Ocular Care Technician: 3 Dr. Thomson TAPE# PACS Pericardial Effusion N DATE OF SERVICE: Adequate 2D, color flow imaging, spectral Doppler, and M-mode. No LVH. LV internal dimensions are normal. Wall motion is normal. EF is greater than or equal to 55%. Prosthetic aortic valve is noted with no significant AI. The left atrium is minimally dilated at 4.2 cm. Mitral valve shows no prolapse. Mild MR. Right-sided chambers are grossly normal. Mild TR. TRANSINT:[id number] Voice Confirmation ID: [id number] DOCUMENT ID: [id number] ECHOCARDIOGRAM REPORT [id number] SHANIA VALERIO FRAN BYRD MD CC: [id number] DICTATION DATE: 09/22/19 1031 POCKET CUTTER: 09/22/19 2313 DEP CLI 09/21/19 [place] [id number] [place] [id number]
== END | disposition home or self-care (01) ==
LOC: D.ECHO 10:51 → D.MAMMO 13:15
PROVIDERS: ATTEND Family Medicine
DX: I48.91 Unspecified atrial fibrillation (principal)

== ENCOUNTER → 2019-12-06 08:33 | Outpatient (CLI) | payer MEDICARE, BC | END | disposition home or self-care (01) | LOC: D.MAMMO 08:33 | PROVIDERS: ATTEND Family Medicine | DX: R92.2 Inconclusive mammogram (principal) ==

== ENCOUNTER → 2020-01-30 09:46 | Outpatient (CLI) | payer MEDICARE, BC ==
--- NOTE | ~2020-01-30 | EC ---
PATIENT:SHANIA VALERIO DATE OF SERVICE: 01/30/20 SEX: F MEDICAL RECORD: [id number] DATE OF : [birth year] LOCATION:D.[facility] AGE OF PATIENT: 74 ADMISSION DATE: 01/30/20 REFERRING PHYSICIAN: INTERPRETING PHYSICIAN: FRAN BYRD MD ECHOCARDIOGRAM REPORT ECHO CHARGES 4 ECHO COMPLETE Date: 01/30/20 CLINICAL DIAGNOSIS: MR, ECHOCARDIOGRAPHIC MEASUREMENTS (adult normal given) AC root (d.<3.7cm) 3.1 cm LV Septum d (<1.2 cm> 1.4 cm Valve Excursion 1.5 cm LV Septum (systole) 1.5 cm Left Atria (s.<4.0cm> 5.0 cm LVPW d(<1.2cm) 0.9 cm RV (d.<2.3cm) 2.8 cm LVPW (sytole) 1.6 cm LV diastole(<5.6CM) 4.9 cm MV E-F(>70mm/sec) cm LV systole 3.4 cm LVOT Diameter 1.5 cm MV exc.(>10mm) cm Est.ejection fraction (50-75%) % DOPPLER: LVIT cm/sec A 88 cm/sec E 142 cm/sec LA cm/sec RVSP 33.0 mmHg LVOT 90 cm/sec AOP1/2T m/s Asc. Ao 192 cm/sec RVOT 52 cm/sec RA cm/sec PA 60 cm/sec AV Gradient Peak 14.8 mmHg AV Mean 10.7 mmHg AV Area 0.9 cm MV Gradient Peak 12.9 mmHg MV Mean 5.8 mmHg MV Area cm COMMENTS: Director [employer]: 5 KSENIA MARY Silver Chaser: 3 Dr. Thomson TAPE# PACS Pericardial Effusion N DATE OF SERVICE: Adequate 2D, color flow imaging, spectral Doppler, and M-Mode. Borderline LVH. LV internal dimensions are normal. Wall motion is normal. EF is greater than or equal to 55%. Tissue bioprosthetic aortic valve is noted with acceptable Doppler velocity. No significant AI. Left atrium is dilated at 5.0 cm. Mitral valve shows no prolapse. Trace MR. Right-sided chambers are grossly normal. Mild TR. ECHOCARDIOGRAM REPORT [id number] SHANIA VALERIO TRANSINT:[id number] Voice Confirmation ID: [id number] DOCUMENT ID: [id number] FRAN BYRD MD CC: [id number] DICTATION DATE: 01/31/20837 SLUDGE CONTROL ATTENDANT: 01/31/20910 DEP CLI 01/30/20 [place] [id number] [place] [id number]
== END | disposition home or self-care (01) ==
LOC: D.ECHO 09:00
PROVIDERS: ATTEND Thoracic Surgery (Cardiothoracic Vascular Surgery)
DX: I65.23 Occlusion and stenosis of bilateral carotid arteries (principal); I05.9 Rheumatic mitral valve disease, unspecified; I35.0 Nonrheumatic aortic (valve) stenosis